=== PATIENT | male | born 1950 | race Caucasian/White ===

== ENCOUNTER 2016-09-05 05:45 | Day surgery (SDC) | payer OTHER ==
[2016-09-05] MEDS ORDERED: SODIUM CHLORIDE 0.9% 1,000 ML IV SCH (06:22)
[2016-09-05 06:34] VITALS: TEMP 97.9
[2016-09-05 06:47] LABS: Glucose,Whole Blood 215 mg/dL (75-99)
[2016-09-05] MEDS ORDERED: INSULIN LISPRO (humaLOG) 300 UNIT/3 ML VIAL SQ ONE (06:48)
[2016-09-05] MEDS ORDERED: PROPOFOL 10 MG/ML 20 ML VIAL IV ONE (07:26)
--- NOTE | 2016-09-05 07:50 | P.PCN ---
Preoperative Diagnosis: Procedure Electrical cardioversion for atrial fibrillation Indication for procedure Atrial fibrillation with a rapid ventricular response despite 100 mg twice daily of metoprolol, symptomatic shortness of breath on exertion Diabetes adult onset Dyslipidemia Increased BMI Details of procedure Successful electrical cardioversion with a single 360 J biphasic shock in the AP configuration Patient converted to sinus rhythm rate follow-up ECG showed sinus mechanism normal heart rates in the 70s normal cardiac intervals Plan Continue metoprolol 100 mg twice daily Continue xarelto 20 mg daily Continue all other medications as before Follow-up in 2 weeks in the office Twelve-lead ECG that day Decision regarding antiarrhythmic drug therapy based upon results of 2-D echo and stress test
[2016-09-05 10:22] VITALS: BP 130/62; PULSE 74
[2016-09-05 10:24] VITALS: RESP 20
== END 2016-09-05 10:40 | disposition home or self-care (01) ==
LOC: CATHCVL 05:45
PROVIDERS: ATTEND Internal Medicine Clinical Cardiac Electrophysiology
DX: I48.1 Persistent atrial fibrillation (principal); E11.9 Type 2 diabetes mellitus without complications; E78.5 Hyperlipidemia, unspecified; G47.33 Obstructive sleep apnea (adult) (pediatric); Z68.41 Body mass index [BMI] 40.0-44.9, adult; Z79.01 Long term (current) use of anticoagulants; Z79.82 Long term (current) use of aspirin; Z79.899 Other long term (current) drug therapy; Z88.5 Allergy status to narcotic agent; Z87.891 Personal history of nicotine dependence
CPT/HCPCS: 93005; 92960; J2704; 99152; 99153

== ENCOUNTER 2016-10-20 08:30 | Day surgery (SDC) | payer OTHER ==
[2016-10-20 08:06] VITALS: TEMP 98.8
[~2016-10-20 08:30] MED LIST: LIDOCAINE 1% INJ 10MG/ML (20 ML MDV) ONE; PROPOFOL 10 MG/ML 20 ML VIAL IV ONE; SODIUM CHLORIDE 0.9% 1,000 ML IV ONE
--- NOTE | 2016-10-20 08:32 | P.PCN ---
Preoperative Diagnosis: Procedure Electrical cardioversion for atrial fibrillation, on flecainide 150 g twice daily and xarelto Indication for the procedure Atrial fibrillation with RVR, symptomatic with tiredness and fatigue Recurrence of atrial fibrillation after electrical cardioversion without antiarrhythmic drug therapy Procedure details Under conscious sedation, successful electrical cardioversion the 360 J biphasic shock Patient converted to sinus rhythm Plan Continue flecainide 150 mg twice daily Continue xarelto Twelve-lead ECG Follow-up in 2 weeks for twelve-lead ECG and Holter monitor and follow with Dr. Najera in 3-4 weeks
[2016-10-20 09:21] VITALS: RESP 18
[2016-10-20] MEDS ORDERED: FLECAINIDE 50 MG TAB PO STA (09:37)
[2016-10-20] MEDS ORDERED: GABAPENTIN 300 MG CAP PO STA (09:37)
[2016-10-20] MEDS ORDERED: METOPROLOL TARTRATE 50 MG TAB PO STA (09:38)
[2016-10-20] MEDS ORDERED: ASPIRIN 81 MG CHEW PO STA (09:38)
[2016-10-20 10:01] VITALS: PULSE 80
[2016-10-20 10:10] VITALS: BP 154/73
[2016-10-20] MEDS ORDERED: GABAPENTIN 300 MG CAP PO SCH (21:00)
[2016-10-20] MEDS ORDERED: METOPROLOL TARTRATE 50 MG TAB PO SCH (21:00)
[2016-10-20] MEDS ORDERED: FLECAINIDE 50 MG TAB PO SCH (21:00)
[2016-10-21] MEDS ORDERED: ASPIRIN 81 MG CHEW PO SCH (09:00)
[2016-10-24 08:30] LABS: Glucose,Whole Blood 151 mg/dL (75-99)
== END 2016-10-20 11:00 | disposition home or self-care (01) ==
LOC: CATHCVL 08:30
PROVIDERS: ATTEND Internal Medicine Clinical Cardiac Electrophysiology
DX: I48.1 Persistent atrial fibrillation (principal); G47.33 Obstructive sleep apnea (adult) (pediatric); E78.5 Hyperlipidemia, unspecified; E11.9 Type 2 diabetes mellitus without complications; R41.3 Other amnesia; G62.9 Polyneuropathy, unspecified; Z88.5 Allergy status to narcotic agent; Z79.01 Long term (current) use of anticoagulants; Z79.84 Long term (current) use of oral hypoglycemic drugs; Z79.82 Long term (current) use of aspirin; Z79.899 Other long term (current) drug therapy
CPT/HCPCS: 93005; 92960; J2001; J2704

== ENCOUNTER → 2016-11-24 | Outpatient (CLI) | payer OTHER ==
--- NOTE | 2016-11-24 23:13 | CONS ---
DATE OF CONSULTATION: 11/24/2016 This patient is a 66-year-old gentleman who has been evaluated in the sleep center for obstructive sleep apnea-hypopnea syndrome. HISTORY OF PRESENT ILLNESS/SLEEP-WAKE EVALUATION: Patient's usual sleep schedule is from around 10 until 8, but sometimes he goes to bed a little bit earlier or a little bit later. He has problems with falling asleep. He has loud snoring, episodes of stopped breathing during sleep, awakenings with choking, nocturia, dry mouth, gasping for air, sleeptalking and sweating. He wakes up from sleep up to 8 times with nocturia. In the morning he wakes up tired. He has difficulties paying attention, falling asleep during the day, worries about his sleep, has problems with memory, concentration, irritability, depression, anxiety, sexual dysfunction. [place] Sleepiness Scale is significantly increased to 16. Past medical history is positive for: 1. Diabetes mellitus. 2. Post-traumatic stress disorder. 3. Atrial fibrillation. 4. Hyperlipidemia. 5. Prostate carcinoma. PAST SURGICAL HISTORY: Prostatectomy. MEDICATIONS: 1. Aspirin. 2. Atorvastatin. 3. Calcium supplement. 4. Cholecalciferol. 5. Docusate. 6. Fish oil. 7. Flecainide. 8. Gabapentin. 9. Glipizide. 10. Hydroxyzine. 11. Metformin. 12. Metoprolol. 13. Multivitamins. 14. Rivaroxaban. 15. Saxagliptin. 16. Sildenafil. REVIEW OF SYSTEMS: Multiple awakenings from sleep, sleepiness during the day, swelling of the legs. No fevers. No double vision. No recent chest pain. No shortness of breath. No abdominal pain. No bleeding episodes. No blood in urine. No seizure episodes. SOCIAL HISTORY: Negative for smoking or using alcohol. FAMILY HISTORY: Positive for snoring, sleep apnea, diabetes, mental illness. PHYSICAL EXAMINATION: A pleasant 66-year-old gentleman without distress. VITAL SIGNS: BP 131/62, HR 50, RR 16. Height 5 feet 7 inches. Weight 273. BMI 42.7. Neck 21 inches in circumference. Temperature 98.0. Oxygen saturation at room air 92%. HEENT: PERRLA, EOMI. Evaluation of oropharynx showed tongue protrudes midline; extremely low position of soft palate. NECK: Supple. No JVD. Thyroid is not palpable. LUNGS: Clear to percussion and to auscultation. Good air exchange. No wheezing or rhonchi. HEART: S1, S2 sounds regular at the moment. ABDOMEN: Obese. EXTREMITIES: One plus bilateral ankle edema. MARKETING ACCOUNT MANAGER: Awake, alert, and oriented x3. Cranial nerves 2 to 7 intact. There is no fasciculation or atrophy noted. No focal deficits observed. IMPRESSION: 1. Snoring, witnessed episodes of stopped breathing during sleep, extremely low position of soft palate, multiple awakenings from sleep with choking and gasping for air, wide neck; obstructive sleep apnea-hypopnea syndrome. 2. Obesity; body mass index of 42.7. 3. Post-traumatic stress disorder. 4. Diabetes mellitus. 5. History of atrial fibrillation. 6. Hyperlipidemia. 7. History of prostate cancer, status post prostatectomy. PLAN: 1. Polysomnography for evaluation of patient's breathing during sleep. 2. CPAP/BiPAP titration if sleep study confirms obstructive sleep apnea-hypopnea syndrome. 3. Preferable position during sleep on the side. 4. No driving if patient feels any sleepiness. Patient is aware of civil and criminal liability for unsafe driving. 5. I will see patient for follow-up visit to explain results of the testing and following plan. Thank you very much for referring this patient for consultation. Sincerely, Giuseppe Bach MD, PhD, FAASM. Diplomat of [place] Board of Sleep Medicine, Sleep Medicine Board by [place] [employer] of Medical Specialities [place] Board of Internal Medicine Nursing Specialist of [place] [facility] [place]
== END ==
LOC: SLEEP 15:11
PROVIDERS: ATTEND Internal Medicine
DX: G47.33 Obstructive sleep apnea (adult) (pediatric) (principal); E66.9 Obesity, unspecified; E11.9 Type 2 diabetes mellitus without complications; E78.5 Hyperlipidemia, unspecified; Z68.41 Body mass index [BMI] 40.0-44.9, adult; Z79.82 Long term (current) use of aspirin; Z79.899 Other long term (current) drug therapy
CPT/HCPCS: 99211

== ENCOUNTER 2017-12-27 14:04 | Emergency (ER) | payer OTHER ==
[2017-12-27 14:33] LABS: Glucose,Whole Blood 89 mg/dL (75-99)
--- NOTE | 2017-12-27 14:33 | ED ---
General Adult HPI - General Chief complaint: Fall Stated complaint: Fall/on blood thinners Time Seen by Provider: 12/27/17 14:04 Source: patient, RN notes reviewed Mode of arrival: ambulatory Limitations: no limitations - History of Present Illness Initial comments: This is a 67-year-old male who [place] and [place] forward [place] a slope hitting his knees first and then falling forward onto concrete where he hit his forearm. Patient states he did not hit his head and did not hurt his neck patient states he was never dazed. Patient states he only pain he has is his left forearm he denies any wrist pain and hand pain or upper arm pain. Patient denies any shoulder pain. Patient denies chest pain difficulty breathing or shortness of breath. Patient denies any new back pain. Patient denies any hip pain patient denies any lower extremity pain. - Related Data Home Medications Medication Instructions Recorded Confirmed Aspirin [Adult Low Dose Aspirin EC] 81 mg PO DAILY 08/31/16 10/20/16 Atorvastatin [Lipitor] 40 mg PO HS 08/31/16 10/20/16 Calcium Citrate 500 mg PO DAILY 08/31/16 10/20/16 Vela Juice 1 dose PO DAILY 08/31/16 10/20/16 Cholecalciferol [Vitamin D3] 2,000 unit PO BID 08/31/16 10/20/16 Docusate [Colace] 100 mg PO DAILY 08/31/16 10/20/16 Flaxseed Oil [[place]-3 Flaxseed Oil] 1 tab PO BID 08/31/16 10/20/16 Gabapentin [Neurontin] 300 mg PO BID 08/31/16 10/20/16 Glucosamine Sulfate 1,500 mg PO DAILY 08/31/16 10/20/16 Magnesium l-Lactate [Magbid ER] 1 tab PO BID 08/31/16 10/20/16 Metoprolol Tartrate [Lopressor] 100 mg PO BID 08/31/16 10/20/16 Multivitamins, Thera [Multivitamin 1 tab PO DAILY 08/31/16 10/20/16 (formulary)] [place]-3 Fatty Acids/Fish Oil [Fish 1 cap PO BID 08/31/16 10/20/16 Oil 1,000 mg Softgel] Rivaroxaban [Xarelto] 20 mg PO HS 08/31/16 10/20/16 glipiZIDE [Glucotrol] 10 mg PO BID 08/31/16 10/20/16 metFORMIN HCL 1,000 mg PO BID 08/31/16 10/20/16 Flecainide [Tambocor] 150 mg PO BID 10/20/16 10/20/16 Allergies Allergy/AdvReac Type Severity Reaction Status Date / Time codeine AdvReac URINARY Verified 12/27/17 14:13 RETENTION Review of Systems ROS Statement: Those systems with pertinent positive or pertinent negative responses have been documented in the HPI. ROS Other: All systems not noted in ROS Statement are negative. Past Medical History Past Medical History: Cancer, Diabetes Mellitus, Hyperlipidemia Additional Past Medical History / Comment(s): PERIPHERAL NEUROPATHY LEGS. 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 History of Any Multi-Drug Resistant Organisms: None Reported Past Surgical History: Prostate Surgery Additional Past Surgical History / Comment(s): ORIF RIGHT LEG & LEFT ARM. Past Anesthesia/Blood Transfusion Reactions: Previous Problems w/ Anesthesia Additional Past Anesthesia/Blood Transfusion Reaction / Comment(s): STATES AFTER HIS PROSTATE SURGERY, HE DIDN'T WAKE UP FOR 2 WEEKS (HAD SURGERY AT [facility] , STATES HE NEVER GOT AN ANSWER FROM PHYSICIANS TO WHAT HAPPENED). Past Psychological History: No Psychological Hx Reported Smoking Status: Former smoker Past Alcohol Use History: None Reported Past Drug Use History: Marijuana - Past Family History Mother Family Medical History: No Reported History General Exam - General Exam Comments Initial Comments: GENERAL: Patient is well-developed and well-nourished. Patient is nontoxic and well- hydrated and is in mild distress. ENT: Neck is soft and supple. No significant lymphadenopathy is noted. Oropharynx is clear. Moist mucous membranes. Neck has full range of motion without eliciting any pain. EYES: The sclera were anicteric and conjunctiva were pink and moist. Extraocular movements were intact and pupils were equal round and reactive to light. Eyelids were unremarkable. PULMONARY: Unlabored respirations. Good breath sounds bilaterally. No audible rales rhonchi or wheezing was noted. CARDIOVASCULAR: There is a regular rate and rhythm without any murmurs gallops or rubs. ABDOMEN: Soft and nontender with normal bowel sounds. SKIN: Skin is clear with no lesions or rashes and otherwise unremarkable. NEUROLOGIC: Patient is alert and oriented x3. Cranial nerves II through XII are grossly intact. Motor and sensory are also intact. Normal speech, volume and content. Symmetrical smile. MUSCULOSKELETAL: Patient's left wrist is immobile secondary to a previous surgery. Patient has some tenderness mid medial aspect of the forearm. LYMPHATICS: No significant lymphadenopathy is noted PSYCHIATRIC: Normal psychiatric evaluation. Limitations: no limitations Course Vital Signs 12/27/17 14:09 Temperature 97.7 F Pulse Rate 65 Respiratory 18 Rate Blood Pressure 153/60 O2 Sat by Pulse 95 Oximetry Medical Decision Making - Medical Decision Making Patient is an EKG showed normal sinus rhythm at 66 bpm FL interval 284 QRS is 84 Q-T intervals 4:30 QTC is 450. EKG was initially done secondary to fact that it was thought that he might be a pretty to trauma. However he does not meet criteria. Patient's forearm x-ray shows some old injury and a possible projectional versus fracture at the proximal radial head however I went back in and reexamine this area on the patient he was not tender at all and that area so I do not believe there is a fracture there. - Lab Data Lab Results 12/27/17 Range/Units 14:30 POC Glucose (mg/dL) 89 (75-99) mg/dL POC Glu [employer]itarian ID Karely Benavides Disposition Clinical Impression: Fall, Forearm contusion Disposition: HOME SELF-CARE Instructions: Fall Prevention for Older Adults (ED), Contusion in Adults (ED) Is patient prescribed a controlled substance at d/c from ED?: No Referrals: None,Stated [REFERRING] - 1-2 days Time of Disposition: 15:31
--- NOTE | 2017-12-27 14:54 | XR ---
EXAMINATION TYPE: XR forearm LT DATE OF EXAM: 12/27/2017 COMPARISON: Hand 06/27/2013 HISTORY: 67-year-old male with pain after fall. Previous injury to wrist years ago. TECHNIQUE: 2 views FINDINGS: There is radiocarpal and intercarpal ankylosis with severe degenerative changes at the distal radioul khadar joint. Old healed fracture deformity of the distal third radial shaft. Suboptimal obliquity at th e elbow for assessment of joint effusion. Possible minimal cortical step-off along the lateral margin of the radial neck. Otherwise, no acute fracture or dislocation seen. IMPRESSION: 1. 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 Sev ere degenerative changes at the distal radioulnar joint. Additional old healed fracture deformity of the radial shaft. 2. Subtle step-off at the radial neck could be projectional. Correlate for point tenderness here as a subtle nondisplaced fracture is difficult to exclude.
[2017-12-27 16:05] VITALS: BP 155/70; PULSE 60; RESP 16; TEMP 97.8
== END 2017-12-27 16:20 | disposition home or self-care (01) ==
LOC: EC 14:04
DX: S50.12XA Contusion of left forearm, initial encounter (principal); R53.2 Functional quadriplegia; E78.5 Hyperlipidemia, unspecified; E11.42 Type 2 diabetes mellitus with diabetic polyneuropathy; Z87.891 Personal history of nicotine dependence; Z79.01 Long term (current) use of anticoagulants; Z79.82 Long term (current) use of aspirin; Z79.84 Long term (current) use of oral hypoglycemic drugs; Z79.899 Other long term (current) drug therapy; Z88.5 Allergy status to narcotic agent; Z98.890 Other specified postprocedural states; W17.81XA Fall down embankment (hill), initial encounter; Y93.89 Activity, other specified; Y92.832 Beach as the place of occurrence of the external cause
CPT/HCPCS: 36415; 99283

== ENCOUNTER 2020-12-19 07:41 | Inpatient (IN) | payer OTHER, MEDICARE ==
[2020-12-19] MEDS ORDERED: ASPIRIN 81 MG PO STA (07:55)
--- NOTE | 2020-12-19 07:58 | ED ---
General Adult HPI - General Chief complaint: Chest Pain Stated complaint: chest pain Time Seen by Provider: 12/19/20 07:44 Source: patient, EMS, RN notes reviewed Mode of arrival: wheelchair Limitations: no limitations - History of Present Illness Initial comments: Patient is a pleasant 70-year-old male presenting to the emergency Department with chest discomfort. Onset of symptoms was last night. Patient had tightness in his chest with associated palpitations. No radiation. Heart rate at home was up to 90. This morning patient did have an episode of nausea and vomiting and sweating. Patient has had some mild soreness of breath. Symptoms worsen with position changes and movement and exertion. Patient does have history of similar symptoms previously associated with atrophic ablation. Patient is on anticoagulation, xarelto. - Related Data Home Medications Medication Instructions Recorded Confirmed Aspirin [Adult Low Dose Aspirin EC] 81 mg PO DAILY 08/31/16 12/27/17 Atorvastatin [Lipitor] 40 mg PO HS 08/31/16 12/27/17 Calcium Citrate 500 mg PO DAILY 08/31/16 12/27/17 Cholecalciferol [Vitamin D3 (25 2,000 unit PO BID 08/31/16 12/27/17 Mcg = 1000 Iu)] Docusate [Colace] 100 mg PO DAILY 08/31/16 12/27/17 Flaxseed Oil [[place]-3 Flaxseed Oil] 1 tab PO BID 08/31/16 12/27/17 Gabapentin [Neurontin] 300 mg PO BID 08/31/16 12/27/17 Glucosamine Sulfate 1,500 mg PO DAILY 08/31/16 12/27/17 Magnesium l-Lactate [Magbid ER] 1 tab PO BID 08/31/16 12/27/17 Metoprolol Tartrate [Lopressor] 100 mg PO BID 08/31/16 12/27/17 Multivitamins, Thera [Multivitamin 1 tab PO DAILY 08/31/16 12/27/17 (formulary)] [place]-3 Fatty Acids/Fish Oil [Fish 1 cap PO BID 08/31/16 12/27/17 Oil 1,000 mg Softgel] Rivaroxaban [Xarelto] 20 mg PO HS 08/31/16 12/27/17 glipiZIDE [Glucotrol] 10 mg PO BID 08/31/16 12/27/17 metFORMIN HCL 1,000 mg PO BID 08/31/16 12/27/17 Flecainide [Tambocor] 150 mg PO BID 10/20/16 12/27/17 Saxagliptin HCl [Onglyza] 5 mg PO DAILY 12/27/17 12/27/17 Allergies Allergy/AdvReac Type Severity Reaction Status Date / Time codeine AdvReac URINARY Verified 12/27/17 15:38 RETENTION Review of Systems ROS Statement: Those systems with pertinent positive or pertinent negative responses have been documented in the HPI. ROS Other: All systems not noted in ROS Statement are negative. Constitutional: Denies: fever Eyes: Denies: eye pain ENT: Denies: ear pain Respiratory: Reports: as per HPI. Denies: cough Cardiovascular: Reports: chest pain, palpitations Endocrine: Denies: fatigue Gastrointestinal: Reports: nausea, vomiting. Denies: abdominal pain Genitourinary: Denies: dysuria Musculoskeletal: Denies: back pain Skin: Denies: rash Neurological: Denies: weakness Past Medical History Past Medical History: Cancer, Diabetes Mellitus, Hyperlipidemia Additional Past Medical History / Comment(s): PERIPHERAL NEUROPATHY LEGS. 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 History of Any Multi-Drug Resistant Organisms: None Reported Past Surgical History: Prostate Surgery Additional Past Surgical History / Comment(s): ORIF RIGHT LEG & LEFT ARM. Past Anesthesia/Blood Transfusion Reactions: Previous Problems w/ Anesthesia Additional Past Anesthesia/Blood Transfusion Reaction / Comment(s): STATES AFTER HIS PROSTATE SURGERY, HE DIDN'T WAKE UP FOR 2 WEEKS (HAD SURGERY AT [facility], STATES HE NEVER GOT AN ANSWER FROM PHYSICIANS TO WHAT HAPPENED). Past Psychological History: No Psychological Hx Reported Smoking Status: Former smoker Past Alcohol Use History: None Reported Past Drug Use History: Marijuana - Past Family History Mother Family Medical History: No Reported History General Exam Limitations: no limitations General appearance: alert, in no apparent distress Head exam: Present: normocephalic Eye exam: Present: normal appearance Neck exam: Present: normal inspection Respiratory exam: Present: normal lung sounds bilaterally. Absent: chest wall tenderness Cardiovascular Exam: Present: regular rate, normal rhythm Expanded Peripheral pulses: 2+: Radial (R), Radial (L), Dorsalis Pedis (R), Dorsalis Pedis (L) GI/Abdominal exam: Present: soft. Absent: tenderness Extremities exam: Present: normal inspection. Absent: pedal edema, calf tenderness Neurological exam: Present: alert Psychiatric exam: Present: normal affect, normal mood Skin exam: Present: normal color Course Vital Signs 12/19/20 12/19/20 07:45 07:50 Temperature 98.4 F Pulse Rate 97 Pulse Rate [ 98 Cmm Technician ] Respiratory 16 16 Rate Blood Pressure 133/57 O2 Sat by Pulse 100 Oximetry EKG Findings - EKG Comments: EKG Findings:: Normal sinus rhythm with a rate of 100. RI 168. QRS 76. QT 392. QTC 505. Normal axis. Normal QRS. No acute ST change. Medical Decision Making - Medical Decision Making Case was discussed in detail with Dr. Lozano, who will admit. Patient updated. Blood transfusion ordered. - Lab Data Result diagrams: 12/19/20 07:56 12/19/20 07:56 Lab Results 12/19/20 12/19/20 12/19/20 Range/Units 07:56 07:56 07:56 WBC 6.7 (3.8-10.6) k/uL RBC 1.82 L (4.30-5.90) m/uL Hgb 5.5 L* (13.0-17.5) gm/dL Hct 17.5 L* (39.0-53.0) % MCV 96.2 (80.0-100.0) fL MCH 30.2 (25.0-35.0) pg MCHC 31.4 (31.0-37.0) g/dL RDW 16.8 H (11.5-15.5) % Plt Count 244 (150-450) k/uL MPV 8.7 Neutrophils % 72 % Lymphocytes % 18 % Monocytes % 6 % Eosinophils % 1 % Basophils % 0 % Neutrophils # 4.8 (1.3-7.7) k/uL Lymphocytes # 1.2 (1.0-4.8) k/uL Monocytes # 0.4 (0-1.0) k/uL Eosinophils # 0.1 (0-0.7) k/uL Basophils # 0.0 (0-0.2) k/uL Hypochromasia Slight Poikilocytosis Slight Anisocytosis Slight Macrocytosis Slight PT 13.6 H (9.0-12.0) sec INR 1.3 H (<1.2) APTT 22.3 (22.0-30.0) sec Sodium 132 L (137-145) mmol/L Potassium 4.7 (3.5-5.1) mmol/L Chloride 104 (98-107) mmol/L Carbon Dioxide 21 L (22-30) mmol/L Anion Gap 7 mmol/L BUN 41 H (9-20) mg/dL Creatinine 0.97 (0.66-1.25) mg/dL Est GFR (CKD-EPI)AfAm >90 (>60 ml/min/1.73 sqM) Est GFR (CKD-EPI)NonAf 79 (>60 ml/min/1.73 sqM) Glucose 349 H (74-99) mg/dL Calcium 8.1 L (8.4-10.2) mg/dL Magnesium 1.9 (1.6-2.3) mg/dL Total Bilirubin 0.3 (0.2-1.3) mg/dL AST 39 (17-59) U/L ALT 50 H (4-49) U/L Alkaline Phosphatase 69 (38-126) U/L Total Protein 5.3 L (6.3-8.2) g/dL Albumin 3.1 L (3.5-5.0) g/dL Stool Occult Blood (Negative) 12/19/20 Range/Units 08:26 WBC (3.8-10.6) k/uL RBC (4.30-5.90) m/uL Hgb (13.0-17.5) gm/dL Hct (39.0-53.0) % MCV (80.0-100.0) fL MCH (25.0-35.0) pg MCHC (31.0-37.0) g/dL RDW (11.5-15.5) % Plt Count (150-450) k/uL MPV Neutrophils % % Lymphocytes % % Monocytes % % Eosinophils % % Basophils % % Neutrophils # (1.3-7.7) k/uL Lymphocytes # (1.0-4.8) k/uL Monocytes # (0-1.0) k/uL Eosinophils # (0-0.7) k/uL Basophils # (0-0.2) k/uL Hypochromasia Poikilocytosis Anisocytosis Macrocytosis PT (9.0-12.0) sec INR (<1.2) APTT (22.0-30.0) sec Sodium (137-145) mmol/L Potassium (3.5-5.1) mmol/L Chloride (98-107) mmol/L Carbon Dioxide (22-30) mmol/L Anion Gap mmol/L BUN (9-20) mg/dL Creatinine (0.66-1.25) mg/dL Est GFR (CKD-EPI)AfAm (>60 ml/min/1.73 sqM) Est GFR (CKD-EPI)NonAf (>60 ml/min/1.73 sqM) Glucose (74-99) mg/dL Calcium (8.4-10.2) mg/dL Magnesium (1.6-2.3) mg/dL Total Bilirubin (0.2-1.3) mg/dL AST (17-59) U/L ALT (4-49) U/L Alkaline Phosphatase (38-126) U/L Total Protein (6.3-8.2) g/dL Albumin (3.5-5.0) g/dL Stool Occult Blood Positive (Negative) Critical Care Time Critical Care Time: Yes Total Critical Care Time: 32 Disposition Clinical Impression: Chest pain, Anemia, GI hemorrhage Disposition: [facility] Condition: Serious Is patient prescribed a controlled substance at d/c from ED?: No Referrals: Lopez Garcia DO [Primary Care Provider] - 1-2 days Decision Time: 08:40
[2020-12-19 08:05] LABS: Anisocytosis Slight; Basophils % (A) 0 %; Eosinophils # (A) 0.1 k/uL (0-0.7); Eosinophils % (A) 1 %; Hypochromasia Slight; Lymphocytes # (A) 1.2 k/uL (1.0-4.8); Lymphocytes % (A) 18 %; MCH 30.2 pg (25.0-35.0); MCHC 31.4 g/dL (31.0-37.0); MCV 96.2 fL (80.0-100.0); Macrocytosis Slight; Mean Platelet Volume 8.7; Monocytes # (A) 0.4 k/uL (0-1.0); Monocytes % (A) 6 %; Neutrophils # (A) 4.8 k/uL (1.3-7.7); Neutrophils % (A) 72 %; Platelet Count 244 k/uL (150-450); Poikilocytosis Slight; RBC 1.82 m/uL (4.30-5.90); RDW 16.8 % (11.5-15.5); WBC 6.7 k/uL (3.8-10.6)
[2020-12-19 08:08] LABS: HCT 17.5 % (39.0-53.0)
[2020-12-19 08:12] LABS: HGB 5.5 gm/dL (13.0-17.5)
[2020-12-19 08:15] LABS: INR 1.3 (<1.2); Prothrombin Time 13.6 sec (9.0-12.0)
[2020-12-19 08:16] LABS: Partial Thromboplastin Time 22.3 sec (22.0-30.0)
[2020-12-19 08:22] LABS: ALT 50 U/L (4-49); AST 39 U/L (17-59); African American GFR (CKD) >90 (>60 ml/min/1.73 sqM); Albumin 3.1 g/dL (3.5-5.0); Alkaline Phosphatase 69 U/L (38-126); Anion Gap 7 mmol/L; Blood Urea Nitrogen 41 mg/dL (9-20); Calcium 8.1 mg/dL (8.4-10.2); Carbon Dioxide 21 mmol/L (22-30); Chloride 104 mmol/L (98-107); Glucose 349 mg/dL (74-99); Magnesium 1.9 mg/dL (1.6-2.3); Non-African American GFR(CKD) 79 (>60 ml/min/1.73 sqM); Potassium 4.7 mmol/L (3.5-5.1); Sodium 132 mmol/L (137-145); Total Bilirubin 0.3 mg/dL (0.2-1.3); Total Protein 5.3 g/dL (6.3-8.2)
[2020-12-19] MEDS ORDERED: PANTOPRAZOLE 40 MG/10 ML VIAL IVP STA (08:25)
[2020-12-19] MEDS ORDERED: NALOXONE 0.4 MG/ML 1 ML VIAL IV PRN (08:26)
--- NOTE | 2020-12-19 08:36 | XR ---
EXAMINATION TYPE: XR chest 2V DATE OF EXAM: 12/19/2020 COMPARISON: Chest x-ray 06/26/2013 HISTORY: Chest pain TECHNIQUE: Frontal and lateral views of the chest are obtained on 3 images. FINDINGS: There is no focal air space opacity, pleural effusion, or pneumothorax seen. The cardiac silhouette size is within normal limits. The osseous structures are intact, there is thoracic spond ylosis. IMPRESSION: No acute cardiopulmonary process.
[2020-12-19] MEDS: SODIUM CHLORIDE 0.9% 1,000 ML IV SCH (08:40)
[2020-12-19] MEDS: INSULIN ASPART (NovoLOG) 100 UNIT/ML VIAL SQ SCH ×3 (15:53→21:11)
[2020-12-19 16:52] LABS: Glucose,Whole Blood 322 mg/dL (75-99)
[2020-12-19 18:15] LABS: ALT 48 U/L (4-49); AST 38 U/L (17-59); African American GFR (CKD) >90 (>60 ml/min/1.73 sqM); Albumin 3.3 g/dL (3.5-5.0); Alkaline Phosphatase 67 U/L (38-126); Anion Gap 8 mmol/L; Blood Urea Nitrogen 33 mg/dL (9-20); Calcium 8.3 mg/dL (8.4-10.2); Carbon Dioxide 21 mmol/L (22-30); Chloride 104 mmol/L (98-107); Glucose 322 mg/dL (74-99); Non-African American GFR(CKD) 89 (>60 ml/min/1.73 sqM); Potassium 4.4 mmol/L (3.5-5.1); Sodium 133 mmol/L (137-145); Total Bilirubin 0.6 mg/dL (0.2-1.3); Total Protein 5.5 g/dL (6.3-8.2)
[2020-12-19 18:27] LABS: Anisocytosis Slight; Basophils % (A) 0 %; Eosinophils # (A) 0.1 k/uL (0-0.7); Eosinophils % (A) 1 %; HCT 21.7 % (39.0-53.0); Hypochromasia Slight; Lymphocytes # (A) 1.6 k/uL (1.0-4.8); Lymphocytes % (A) 21 %; MCH 31.9 pg (25.0-35.0); MCV 93.7 fL (80.0-100.0); Mean Platelet Volume 7.6; Monocytes # (A) 0.4 k/uL (0-1.0); Monocytes % (A) 5 %; Neutrophils # (A) 5.5 k/uL (1.3-7.7); Neutrophils % (A) 70 %; Platelet Count 233 k/uL (150-450); Poikilocytosis Slight; RBC 2.31 m/uL (4.30-5.90); RDW 16.4 % (11.5-15.5); WBC 7.8 k/uL (3.8-10.6)
[2020-12-19 18:33] LABS: HGB 7.4 gm/dL (13.0-17.5)
[2020-12-19] MEDS ORDERED: DICLOFENAC SODIUM GEL 100 GM TUBE TOPICAL PRN (18:43)
[2020-12-19] MEDS ORDERED: FUROSEMIDE 10 MG/ML 2 ML VIAL IV ONE (19:15)
[2020-12-19] MEDS ORDERED: TEMAZEPAM 15 MG CAP PO PRN (19:27)
[2020-12-19] MEDS ORDERED: ALPRAZolam 0.25 MG TAB PO PRN (19:27)
[2020-12-19 20:50] LABS: Glucose,Whole Blood 326 mg/dL (75-99)
[2020-12-19] MEDS ORDERED: NON FORMULARY DRUG (Omega-3 Fatty Acids/Fish Oil [Fish Oil 1,000 Mg Softgel] 1 EACH Capsul PO SCH (21:00)
[2020-12-19] MEDS: ARTIFICIAL TEARS-HYPROMELLOSE DROPS 15 ML BTL BOTH EYES SCH (21:05)
[2020-12-19] MEDS: PRAZOSIN 1 MG CAP PO SCH (21:06)
[2020-12-19] MEDS: CHOLECALCIFEROL 25 MCG (1000 IU) TABLET PO SCH (21:08)
[2020-12-19] MEDS: FLECAINIDE 50 MG TAB PO SCH (21:08)
[2020-12-19] MEDS: glipiZIDE 10 MG TAB PO SCH (21:09)
[2020-12-19] MEDS: GABAPENTIN 300 MG CAP PO SCH (21:09)
[2020-12-19] MEDS: ATORVASTATIN 80 MG TAB PO SCH (21:11)
[2020-12-19] MEDS: PANTOPRAZOLE 40 MG/10 ML VIAL IVP SCH (21:13)
[2020-12-19] MEDS: metFORMIN 500 MG TAB PO SCH (21:50)
--- NOTE | 2020-12-19 23:12 | HP ---
HISTORY AND PHYSICAL DATE OF SERVICE: 12/19/2020 CHIEF COMPLAINTS: Chest pain and weakness. HISTORY OF PRESENT ILLNESS: This 70-year-old gentleman with a past medical history of multiple medical problems including atrial fibrillation, history of diabetes mellitus, hyperlipidemia, history of peripheral neuropathy of the legs, being followed by Dr. Enriquez in the [facility] was admitted with chest pain. The patient apparently went fishing and was feeling extremely weak. Patient also complaining of melenic stools for the past couple weeks. Patient apparently eating so much blueberries, but after stopping the blueberries, the patient thought the stool color returned to brown, but then the patient had again black stools. The patient also had episodes of nausea, vomiting, sweating also. The patient came to [facility] and admitted to the hospital for further evaluation and treatment. At the time of admission, hemoglobin found to be 5.5. Stool OB is positive. The patient was given 2 units of transfusion. Hemoglobin is at 7.4. Cardiology evaluation in progress. There is no history of fever, rigors or chills. No headache, loss of consciousness or seizures. Of note, patient is also taking Motrin significant amounts because of the back pain recently along with Xarelto. Blood sugar is elevated. PAST MEDICAL HISTORY: History of atrial fibrillation, history of diabetes, hyperlipidemia, history of peripheral neuropathy. MEDICATIONS: Medications prior to admission: metformin, Glucotrol, Zoloft, Xarelto, fish oil, multivitamins, Cozaar, Advil, Neurontin. Flexeril. Doses are reviewed. ALLERGIES: CODEINE. FAMILY HISTORY: No history of heart disease or strokes in the family. SOCIAL HISTORY: Previous history of smoking. Occasional THC. REVIEW OF SYSTEMS: ENT: No diminished vision. No diminished hearing. CARDIOVASCULAR: As mentioned earlier. RESPIRATORY: As mentioned earlier. GI: As mentioned earlier. no dysuria. Nervous system: No numbness, weakness. ALLERGY/IMMUNOLOGY: No asthma or hayfever. MUSCULOSKELETAL as mentioned earlier. HEMATOLOGY/ONCOLOGY: As mentioned earlier. ENDOCRINE as mentioned earlier. CONSTITUTIONAL: As mentioned earlier. DERMATOLOGY negative. RHEUMATOLOGY: Negative. PSYCHIATRY as mentioned earlier. PHYSICAL EXAM: Patient is alert, oriented x3. Pulse is 94. Blood pressure 128/55, respiration 18, temperature 98.4, pulse ox 98% on room air. HEENT: Conjunctivae pale. Oral mucosa moist. NECK is no jugular venous distention. No carotid bruit. No thyroid enlargement. Cardiovascular system: S1, S2 muffled. No S3, no S4. RESPIRATORY: Breath sounds diminished in the bases. No rhonchi. No crackles. ABDOMEN: Soft, obese, nontender. No mass palpable. No ascites. LEGS: No edema. No swelling. Nervous system: Higher functions as mentioned earlier. Moves all four limbs. No focal deficits. LYMPHATICS: No lymph nodes palpable in the neck, axillae or groin. SKIN: No ulcer. No rash and no bleeding. JOINTS: No active deforming arthropathy. LAB STUDIES: WBC 6.7, hemoglobin of 5.5. INR 1.3. Sodium 132. ASSESSMENT: 1. Acute upper gastrointestinal bleeding with acute blood loss anemia. 2. Chest pain for evaluation possible unstable angina. 3. Hyponatremia. 4. Diabetes mellitus type 2 uncontrolled with hyperglycemia. 5. Back pain, degenerative joint disease. 6. History of atrial fibrillation. 7. Diabetes mellitus type 2. 8. Hyperlipidemia. 9. History of peripheral neuropathy. 10.History of nicotine dependence. 11.Obesity with body mass of 41.5. 12.NO CODE, NO CPR, NO VENT. RECOMMENDATIONS AND DISCUSSION: In this 70-year-old gentleman who presented with multiple complex medical issues, we will monitor the patient closely. Continue the current medications, management and symptomatic treatment. I would recommend one more unit of transfusion for symptomatic anemia. Otherwise, Gastroenterology consultation, possible endoscopes, hold off antiplatelet agents. Continue the rest of medication. Monitor blood sugars closely. Otherwise, we will also obtain a Cardiology and Gastroenterology consultation as well. Prognosis guarded because of multiple complex medical issues. Symptomatic treatment also will be provided. See orders for details. A copy of this dictation being forwarded to Dr. Enriquez who is the primary physician. MMODL / IJN: [id number] / MTDOfe
[2020-12-20 00:56] LABS: Appearance,Urine Clear (Clear); Bilirubin,Urine Negative (Negative); Blood,Urine Negative (Negative); Color,Urine Light Yellow; Glucose,Urine (UA) 4+ (Negative); Ketones,Urine Negative (Negative); Leukocyte Esterase,Urine Negative (Negative); Nitrite,Urine Negative (Negative); Protein,Urine Negative (Negative); Specific Gravity,Urine 1.018 (1.001-1.035); Urobilinogen,Urine <2.0 mg/dL (<2.0)
[2020-12-20 04:48] LABS: ALT 47 U/L (4-49); AST 34 U/L (17-59); African American GFR (CKD) >90 (>60 ml/min/1.73 sqM); Albumin 2.9 g/dL (3.5-5.0); Alkaline Phosphatase 64 U/L (38-126); Anion Gap 4 mmol/L; Blood Urea Nitrogen 26 mg/dL (9-20); Calcium 8.2 mg/dL (8.4-10.2); Carbon Dioxide 25 mmol/L (22-30); Chloride 107 mmol/L (98-107); Glucose 210 mg/dL (74-99); Non-African American GFR(CKD) 87 (>60 ml/min/1.73 sqM); Potassium 3.8 mmol/L (3.5-5.1); Sodium 136 mmol/L (137-145); Total Bilirubin 0.6 mg/dL (0.2-1.3); Total Protein 5.1 g/dL (6.3-8.2)
[2020-12-20] MEDS: INSULIN ASPART (NovoLOG) 100 UNIT/ML VIAL SQ SCH ×4 (06:31→21:11)
[2020-12-20 06:34] LABS: Glucose,Whole Blood 279 mg/dL (75-99)
[2020-12-20 08:55] LABS: Anisocytosis Slight; Basophils % (A) 0 %; Eosinophils # (A) 0.2 k/uL (0-0.7); Eosinophils % (A) 3 %; HCT 23.1 % (39.0-53.0); HGB 7.9 gm/dL (13.0-17.5); Hypochromasia Slight; Lymphocytes # (A) 1.3 k/uL (1.0-4.8); Lymphocytes % (A) 20 %; MCH 32.1 pg (25.0-35.0); MCHC 34.3 g/dL (31.0-37.0); MCV 93.6 fL (80.0-100.0); Mean Platelet Volume 7.5; Monocytes # (A) 0.4 k/uL (0-1.0); Monocytes % (A) 6 %; Neutrophils # (A) 4.3 k/uL (1.3-7.7); Neutrophils % (A) 68 %; Platelet Count 226 k/uL (150-450); Poikilocytosis Moderate; RBC 2.46 m/uL (4.30-5.90); RDW 16.6 % (11.5-15.5); WBC 6.3 k/uL (3.8-10.6)
[2020-12-20] MEDS ORDERED: NON FORMULARY DRUG (Aspirin [Adult Low Dose Aspirin Ec] 81 MG Tablet.Dr) PO SCH (09:00)
[2020-12-20] MEDS ORDERED: NON FORMULARY DRUG (Ergocalciferol (Vitamin D2) [Vitamin D2 (2000 Iu)] 50 MCG Tablet) PO SCH (09:00)
[2020-12-20] MEDS: SERTRALINE 100 MG TAB PO SCH (09:12)
[2020-12-20] MEDS: FLECAINIDE 50 MG TAB PO SCH ×2 (09:12→21:11)
[2020-12-20] MEDS: GABAPENTIN 300 MG CAP PO SCH ×3 (09:12→21:10)
[2020-12-20] MEDS: buPROPion SR 150 MG TABLET.ER PO SCH (09:12)
[2020-12-20] MEDS: metFORMIN 500 MG TAB PO SCH ×2 (09:13→21:11)
[2020-12-20] MEDS: glipiZIDE 10 MG TAB PO SCH ×2 (09:13→21:11)
[2020-12-20] MEDS: LOSARTAN 25 MG TAB PO SCH (09:13)
[2020-12-20] MEDS: DOCUSATE 100 MG CAP PO SCH (09:14)
[2020-12-20] MEDS: PANTOPRAZOLE 40 MG/10 ML VIAL IVP SCH ×2 (09:14→21:12)
[2020-12-20] MEDS: LINAGLIPTIN 5 MG TABLET PO SCH (09:14)
[2020-12-20] MEDS: MULTIVITAMINS, THERA 1 EACH TAB PO SCH (09:15)
[2020-12-20] MEDS: CHOLECALCIFEROL 25 MCG (1000 IU) TABLET PO SCH ×2 (09:16→21:11)
[2020-12-20] MEDS: ARTIFICIAL TEARS-HYPROMELLOSE DROPS 15 ML BTL BOTH EYES SCH ×2 (09:24→21:12)
[2020-12-20] MEDS: SODIUM CHLORIDE 0.9% 1,000 ML IV SCH (09:25)
[2020-12-20 09:52] LABS: African American GFR (CKD) >90 (>60 ml/min/1.73 sqM); Anion Gap 6 mmol/L; Blood Urea Nitrogen 21 mg/dL (9-20); Calcium 8.2 mg/dL (8.4-10.2); Carbon Dioxide 25 mmol/L (22-30); Chloride 102 mmol/L (98-107); Glucose 345 mg/dL (74-99); Non-African American GFR(CKD) 87 (>60 ml/min/1.73 sqM); Potassium 4.2 mmol/L (3.5-5.1); Sodium 133 mmol/L (137-145)
--- NOTE | 2020-12-20 11:27 | P.CONS ---
History of Present Illness - Reason for Consult Consult date: 12/20/20 Anemia Requesting physician: Colt Velasco - Chief Complaint Chest pain - History of Present Illness 70-year-old male with a medical history significant for atrial fibrillation on anticoagulation therapy, diabetes mellitus and hyperlipidemia who presented to the hospital due to chest pain and shortness of breath. The patient had been experiencing some shortness of breath with chest tightness on exertion. Troponins have been negative and the patient was found to be anemic on presentation with a hemoglobin of 5.5 with normocytic indices currently at 7.9 from 7.4 after transfusion. Stool testing was positive for occult blood. BUN was elevated at 41 on presentation. The patient denies any prior history of peptic ulcer disease or anemia. He believes his last colonoscopy was approximately 5 years ago and significant for polypectomy and has never had an upper endoscopy in the past. Bowel movements have been dark over the past few weeks. Initially the patient attributed this to food however continued initially after he changed his diet and avoided blueberries. Currently he is reporting the bowel movements are brown. He had been taking a large amount of N SAID medication stating he would take Motrin up to 10 times daily for back pain. Review of Systems REVIEW OF SYSTEMS: CONSTITUTIONAL: Denies any fevers, chills, weight change but he does report some fatigue. CARDIOVASCULAR: Denies any palpitations high or low blood pressures, but he does have a known history of atrial fibrillation and had some chest pain on presentation which is improved. RESPIRATORY: Denies any hemoptysis or cough, but does report shortness of breath. GENITOURINARY: No dysuria or hematuria. MUSCULOSKELETAL: No weakness reported. SKIN: Denies any new rashes or lesions, jaundice or pallor. PSYCHIATRIC: Denies any depression or anxiety. NEUROLOGY: Denies headache, denies any new focal deficits. EARS/NOSE/THROAT: No recent hearing change, congestion, nasal discharge or sore throat. EYES: No pain in eyes, discharge or change in vision. GASTROINTESTINAL: As per HPI. Past Medical History Past Medical History: Atrial Fibrillation, Cancer, Diabetes Mellitus, Hyperlipi demia Additional Past Medical History / Comment(s): PERIPHERAL NEUROPATHY LEGS. 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 History of Any Multi-Drug Resistant Organisms: None Reported Past Surgical History: Prostate Surgery Additional Past Surgical History / Comment(s): ORIF RIGHT LEG & LEFT ARM. Past Anesthesia/Blood Transfusion Reactions: Previous Problems w/ Anesthesia Additional Past Anesthesia/Blood Transfusion Reaction / Comm: STATES AFTER HIS PROSTATE SURGERY, HE DIDN'T WAKE UP FOR 2 WEEKS (HAD SURGERY AT [facility], STATES HE NEVER GOT AN ANSWER FROM PHYSICIANS TO WHAT HAPPENED). Past Psychological History: No Psychological Hx Reported Smoking Status: Former smoker Past Alcohol Use History: None Reported Additional Past Alcohol Use History / Comment(s): QUIT SMOKING (2009), 40 YRS, 1.5 PPD. Past Drug Use History: Marijuana Additional Drug Use History / Comment(s): IN THE PAST. - Past Family History Mother Family Medical History: No Reported History Medications and Allergies Home Medications Medication Instructions Recorded Confirmed Type Aspirin [Adult Low Dose Aspirin EC] 81 mg PO DAILY 08/31/16 12/19/20 History Cholecalciferol [Vitamin D3 (25 1 tab PO BID 08/31/16 12/19/20 History Mcg = 1000 Iu)] Docusate [Colace] 100 mg PO DAILY 08/31/16 12/19/20 History Gabapentin [Neurontin] 600 mg PO TID 08/31/16 12/19/20 History Multivitamins, Thera [Multivitamin 1 tab PO DAILY 08/31/16 12/19/20 History (formulary)] [place]-3 Fatty Acids/Fish Oil [Fish 1 cap PO BID 08/31/16 12/19/20 History Oil 1,000 mg Softgel] Rivaroxaban [Xarelto] 20 mg PO HS 08/31/16 12/19/20 History glipiZIDE [Glucotrol] 10 mg PO BID 08/31/16 12/19/20 History metFORMIN HCL 1,000 mg PO BID 08/31/16 12/19/20 History Alogliptin Benzoate [Alogliptin] 25 mg PO DAILY 12/19/20 12/19/20 History Atorvastatin [Lipitor] 80 mg PO HS 12/19/20 12/19/20 History Cyclobenzaprine [Flexeril] 10 mg PO Q8H PRN 12/19/20 12/19/20 History Diclofenac Sodium Gel [Voltaren 4 gm TOPICAL Q6H PRN 12/19/20 12/19/20 History Gel] Ergocalciferol (Vitamin D2) 100 mcg PO DAILY 12/19/20 12/19/20 History [Vitamin D2 (2000 Iu)] Flecainide Acetate 100 mg PO BID 12/19/20 12/19/20 History Ibuprofen [Advil] 400 mg PO Q8HR PRN 12/19/20 12/19/20 History Losartan Potassium [Cozaar] 25 mg PO DAILY 12/19/20 12/19/20 History Naproxen 500 mg PO BID PRN 12/19/20 12/19/20 History Prazosin HCl 2 mg PO HS 12/19/20 12/19/20 History Propylene Glycol/Peg 400 [Systane 1 drop BOTH EYES BID 12/19/20 12/19/20 History Ultra 0.4-0.3% Eye Drp] Sertraline [Zoloft] 100 mg PO DAILY 12/19/20 12/19/20 History buPROPion HCL [Wellbutrin SR] 150 mg PO DAILY 12/19/20 12/19/20 History Allergies Allergy/AdvReac Type Severity Reaction Status Date / Time codeine AdvReac URINARY Verified 12/19/20 09:58 RETENTION Physical Exam Vitals: Vital Signs Temp Pulse Pulse Resp BP BP Pulse Ox 12/20/20 08:18 98 12/20/20 04:00 98.6 F 105 H 17 138/64 98 12/20/20 01:09 98.4 F 99 18 142/63 98 12/20/20 00:00 98.4 F 109 H 16 131/61 98 12/19/20 22:27 97.9 F 101 H 18 130/61 98 12/19/20 21:57 98.4 F 90 18 142/78 97 12/19/20 21:47 98.7 F 97 16 163/69 96 12/19/20 19:47 98.1 F 105 H 16 153/69 99 12/19/20 16:25 98.4 F 94 18 128/55 98 12/19/20 15:54 98.2 F 92 18 134/58 12/19/20 13:49 98.2 F 96 18 146/61 100 12/19/20 13:19 98.6 F 96 18 143/52 100 12/19/20 12:53 98 F 96 18 139/45 12/19/20 10:45 98.1 F 89 16 125/48 12/19/20 10:35 98 F 96 16 112/53 12/19/20 09:00 96 104/42 96 Intake and Output 12/19/20 12/20/20 12/20/20 22:59 06:59 14:59 Intake Total 410 620 Balance 410 620 Intake: Oral 100 Blood Product 310 620 Rc As-1 Unit 0 310 [id number] Rc Pheresis As-3 Unit 310 [id number] Other: Voiding Method Toilet Toilet # Voids 1 2 # Bowel Movements 2 Weight 120.202 kg 115.3 kg On physical examination, patient appears comfortable in no apparent distress. HEAD: Normocephalic, atraumatic. EYES: No scleral icterus. No conjunctival injection. MOUTH: No lesions, tongue midline. NECK: Trachea midline, no gross abnormalities. CHEST: Clear to auscultation with no wheezing or rhonchi appreciated. HEART: S1-S2 appreciated. ABDOMEN: Soft, obese, nontender to palpation. Bowel sounds are positive. No organomegaly. No guarding or rigidity. EXTREMITIES: No pedal edema. SKIN: No rashes, no jaundice. NEUROLOGIC: Alert and oriented x3. No focal deficits. Results CBC & Chem 7: 12/20/20 08:16 12/20/20 08:16 Labs: Abnormal Lab Results - Last 24 Hours (Table) 12/19/20 12/19/20 12/19/20 Range/Units 07:56 16:50 17:32 RBC 2.31 L (4.30-5.90) m/uL Hgb 7.4 L D (13.0-17.5) gm/dL Hct 21.7 L (39.0-53.0) % RDW 16.4 H (11.5-15.5) % Sodium (137-145) mmol/L Carbon Dioxide (22-30) mmol/L BUN (9-20) mg/dL Glucose (74-99) mg/dL POC Glucose (mg/dL) 322 H (75-99) mg/dL Calcium (8.4-10.2) mg/dL Total Protein (6.3-8.2) g/dL Albumin (3.5-5.0) g/dL Urine Glucose (UA) (Negative) Crossmatch See Detail 12/19/20 12/19/20 12/19/20 Range/Units 17:42 20:11 23:59 RBC (4.30-5.90) m/uL Hgb (13.0-17.5) gm/dL Hct (39.0-53.0) % RDW (11.5-15.5) % Sodium 133 L (137-145) mmol/L Carbon Dioxide 21 L (22-30) mmol/L BUN 33 H (9-20) mg/dL Glucose 322 H (74-99) mg/dL POC Glucose (mg/dL) 326 H (75-99) mg/dL Calcium 8.3 L (8.4-10.2) mg/dL Total Protein 5.5 L (6.3-8.2) g/dL Albumin 3.3 L (3.5-5.0) g/dL Urine Glucose (UA) 4+ H (Negative) Crossmatch 12/20/20 12/20/20 12/20/20 Range/Units 00:22 06:27 08:16 RBC 2.46 L (4.30-5.90) m/uL Hgb 7.9 L (13.0-17.5) gm/dL Hct 23.1 L (39.0-53.0) % RDW 16.6 H (11.5-15.5) % Sodium 136 L (137-145) mmol/L Carbon Dioxide (22-30) mmol/L BUN 26 H (9-20) mg/dL Glucose 210 H (74-99) mg/dL POC Glucose (mg/dL) 279 H (75-99) mg/dL Calcium 8.2 L (8.4-10.2) mg/dL Total Protein 5.1 L (6.3-8.2) g/dL Albumin 2.9 L (3.5-5.0) g/dL Urine Glucose (UA) (Negative) Crossmatch Chest x-ray: report reviewed (No acute cardiopulmonary process on chest x-ray) Assessment and Plan (1) Melena Narrative/Plan: 70-year-old male presenting with complaints of chest pain. Multiple medical comorbidities but denies any prior history of peptic ulcer disease or GI bleed. He denies any gross GI bleeding but had been noticing some darker colored bowel movements over the past few weeks. He had been taking excessive amounts of NSAID medications with Motrin up to 10 times daily for back pain. No prior EGD and colonoscopy was performed 5 years ago with polypectomy per his report. He denies any abdominal pain. He was found to have a macrocytic anemia with stool testing positive for occult blood and elevation in BUN of 41. Unclear etiology, plan is for EGD to rule out upper GI bleed from peptic ulcer disease, gastritis, esophagitis, AVM or other etiology with anemia laboratory evaluation also ordered. Current Visit: Yes Status: Acute Code(s): K92.1 - MELENA SNOMED Code(s): 3776745 (2) Normocytic anemia Current Visit: Yes Status: Acute Code(s): D64.9 - ANEMIA, UNSPECIFIED SNOMED Code(s): 649145459 (3) Positive occult stool blood test Current Visit: Yes Status: Acute Code(s): R19.5 - OTHER FECAL ABNORMALITIES SNOMED Code(s): 97291817 Plan: Supportive care Clear liquid diet Nothing by mouth after midnight Continue to monitor hemoglobin and hematocrit and transfuse as needed Avoid NSAID use Hold anticoagulation therapy for now Plan for EGD tomorrow with all of the risks, benefits and possible, patient of the procedure to into the patient length with HIS questions answered to his satisfaction Anemia laboratory evaluation ordered/added on to admission labs Continue Protonix IV twice daily Further recommendations pending findings from EGD Thank you for allowing us to participate in the care of the patient
[2020-12-20 11:59] LABS: Glucose,Whole Blood 299 mg/dL (75-99)
[2020-12-20 12:12] LABS: Reticulocyte % 12.9 % (0.5-2.0)
[2020-12-20 14:24] LABS: Anisocytosis Slight; HCT 24.5 % (39.0-53.0); HGB 7.9 gm/dL (13.0-17.5); Hypochromasia Slight; MCH 30.4 pg (25.0-35.0); MCHC 32.3 g/dL (31.0-37.0); MCV 94.1 fL (80.0-100.0); Mean Platelet Volume 8.8; Platelet Count 236 k/uL (150-450); Poikilocytosis Slight; RDW 16.9 % (11.5-15.5); WBC 6.9 k/uL (3.8-10.6)
--- NOTE | 2020-12-20 16:03 | PN ---
PROGRESS NOTE DATE OF SERVICE: 12/20/2020 INTERVAL HISTORY: This 70-year-old gentleman was admitted with acute upper gastrointestinal bleeding with acute blood loss anemia. He is being closely monitored. Hemoglobin 7.9 today. The patient has received 3 units transfusion. Hemoglobin was 5.5 on admission. The patient is being closely monitored. Dr. Zambrano is following the patient and planning clear liquids and avoid NSAIDs and possibly EGD tomorrow. PAST MEDICAL HISTORY: Reviewed. REVIEW OF SYMPTOMS: CARDIOVASCULAR: No angina or palpitations. RESPIRATORY: As mentioned earlier. GI: As mentioned earlier. : No dysuria. NERVOUS SYSTEM: No numbness or weakness. CURRENT MEDICATIONS: Reviewed include Xanax, Lipitor, Wellbutrin, Flexeril, Voltaren gel, Tambocor, Neurontin, Glucotrol, NovoLog, Tradjenta. Doses reviewed. PHYSICAL EXAM: GENERAL: Patient is alert and oriented times three. VITAL SIGNS: Pulse 63, blood pressure 140/60, respirations 16, temperature 99.1, pulse ox 99% on room air. HEENT: Conjunctivae normal. Oral mucosa moist. Conjunctivae are pale. NECK: No jugular venous distention. No carotid bruits. No lymph node enlargement. RESPIRATORY: Breath sounds diminished at the bases. No rhonchi, no crackles. HEART: S1 and S2, muffled. ABDOMEN: Soft, no tenderness. EXTREMITIES: No edema, no swelling. NERVOUS: No focal deficits. LABS: WBC 6.9, hemoglobin 7.9, glucose 299. ASSESSMENT: 1. Acute upper gastrointestinal bleeding with acute blood loss anemia status post blood transfusions x3. 2. Chest pain for evaluation, possible unstable angina. 3. Hyponatremia. 4. Diabetes mellitus type 2 uncontrolled with hyperglycemia. 5. Back pain, degenerative joint disease. 6. History atrial fibrillation. 7. Diabetes mellitus type 2. 8. Hyperlipidemia. 9. History of peripheral neuropathy. 10.History of nicotine dependence. 11.Obesity with body mass index of 41.1. 12.NO CODE, NO CPR, NO VENT. RECOMMENDATIONS AND DISCUSSION: This 70-year-old gentleman presented with multiple complex medical issues, we will monitor the patient closely. Continue the current management and continue symptomatic treatment. Repeat labs. Otherwise EGD by Dr. Zambrano. Avoid NSAIDs and antiplatelet agents for now. Guarded prognosis. Further recommendations to follow. MMODL / IJN: [id number] / [id number]
--- NOTE | 2020-12-20 16:04 | P.CRDCN ---
History of Present Illness History of present illness: HISTORY OF PRESENTING ILLNESS Patient is a pleasant 70-year-old male with a history of hypertension, diabetes mellitus type 2, hyperlipidemia, atrial fibrillation, arthritis who presents sec ondary to weakness, fatigue and chest pain. Patient admits he has been having melena over the last 2 weeks and he has been having a lot of left hip pain has been taking a good amount of Motrin. He has been on Xarelto for approximately 4 years and normally has not had any issues with GI bleeds. He was found to have hemoglobin of 5.5 and received packed red blood cell transfusion with hemoglobin up to 7.9. Patient feels much better since that time. He was previously having some chest pain however since transfusions is feeling much better. Blood work showed troponins negative 3, creatinine 0.97, sodium 132, BUN 41, glucose 349. Patient is scheduled to undergo EGD tomorrow. REVIEW OF SYSTEMS At the time of my exam: CONSTITUTIONAL: Denies fever or chills. +weakness CARDIOVASCULAR: D+chest pain, +shortness of breath, no orthopnea, PND or palpitations. RESPIRATORY: Denies cough. GASTROINTESTINAL: Denies abdominal pain, diarrhea, constipation, nausea or vomiting. MUSCULOSKELETAL: Denies myalgias. NEUROLOGIC: Denies numbness, tingling or weakness. ENDOCRINE: Denies fatigue, weight change, polydipsia or polyurina. GENITOURINARY: Denies burning, hematuria or urgency with micturation. HEMATOLOGIC: Denies history of anemia or bleeding. PHYSICAL EXAMINATION Vital signs reviewed. CONSTITUTIONAL: No apparent distress. Obese HEENT: Head is normocephalic. Pupils are equal, round. Sclerae anicteric. Mucous membranes of the mouth are moist. No JVD. No carotid bruit. CHEST EXAMINATION: Lungs are clear to auscultation. No chest wall tenderness is noted on palpation or with deep breathing. HEART EXAMINATION: Regular rate and rhythm. S1, S2 heard. No murmurs, gallops or rub. ABDOMEN: Soft, nontender. Positive bowel sounds. EXTREMITIES: 2+ peripheral pulses, no lower extremity edema and no calf tenderness. NEUROLOGIC EXAMINATION: Patient is awake, alert and oriented x3. ASSESSMENT 1. Acute GI bleed 2. Acute blood loss anemia 3. Paroxysmal atrial fibrillation, currently sinus rhythm on home flecainide 4. Mildly prolonged QTc 505 on EKG 5. Chest pain related to anemia, troponins normal do not suspect acute current syndrome 6. Preoperative cardiac clearance 7. Diabetes mellitus type 2 8. Essential hypertension 9. Hyperlipidemia PLAN Patient presented with GI bleed after ingesting a large amount of NSAIDs and on home anticoagulation with Xarelto. Hold Xarelto. Monitor QTC, QRS on flecainide. Continue with current cardiac regimen. Patient appears stable for EGD tomorrow and is cleared from a cardiology standpoint. May consider watchman closure of left atrial appendage in the future however GIB appears mainly related to NSIAD use. Past Medical History Past Medical History: Atrial Fibrillation, Cancer, Diabetes Mellitus, Hyperlipidemia Additional Past Medical History / Comment(s): PERIPHERAL NEUROPATHY LEGS. 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 History of Any Multi-Drug Resistant Organisms: None Reported Past Surgical History: Prostate Surgery Additional Past Surgical History / Comment(s): ORIF RIGHT LEG & LEFT ARM. Past Anesthesia/Blood Transfusion Reactions: Previous Problems w/ Anesthesia Additional Past Anesthesia/Blood Transfusion Reaction / Comment(s): STATES AFTER HIS PROSTATE SURGERY, HE DIDN'T WAKE UP FOR 2 WEEKS (HAD SURGERY AT [facility] , STATES HE NEVER GOT AN ANSWER FROM PHYSICIANS TO WHAT HAPPENED). Past Psychological History: No Psychological Hx Reported Smoking Status: Former smoker Past Alcohol Use History: None Reported Additional Past Alcohol Use History / Comment(s): QUIT SMOKING (2009), 40 YRS, 1.5 PPD. Past Drug Use History: Marijuana Additional Drug Use History / Comment(s): IN THE PAST. - Past Family History Mother Family Medical History: No Reported History Medications and Allergies Home Medications Medication Instructions Recorded Confirmed Type Aspirin [Adult Low Dose Aspirin EC] 81 mg PO DAILY 08/31/16 12/19/20 History Cholecalciferol [Vitamin D3 (25 1 tab PO BID 08/31/16 12/19/20 History Mcg = 1000 Iu)] Docusate [Colace] 100 mg PO DAILY 08/31/16 12/19/20 History Gabapentin [Neurontin] 600 mg PO TID 08/31/16 12/19/20 History Multivitamins, Thera [Multivitamin 1 tab PO DAILY 08/31/16 12/19/20 History (formulary)] [place]-3 Fatty Acids/Fish Oil [Fish 1 cap PO BID 08/31/16 12/19/20 History Oil 1,000 mg Softgel] Rivaroxaban [Xarelto] 20 mg PO HS 08/31/16 12/19/20 History glipiZIDE [Glucotrol] 10 mg PO BID 08/31/16 12/19/20 History metFORMIN HCL 1,000 mg PO BID 08/31/16 12/19/20 History Alogliptin Benzoate [Alogliptin] 25 mg PO DAILY 12/19/20 12/19/20 History Atorvastatin [Lipitor] 80 mg PO HS 12/19/20 12/19/20 History Cyclobenzaprine [Flexeril] 10 mg PO Q8H PRN 12/19/20 12/19/20 History Diclofenac Sodium Gel [Voltaren 4 gm TOPICAL Q6H PRN 12/19/20 12/19/20 History Gel] Ergocalciferol (Vitamin D2) 100 mcg PO DAILY 12/19/20 12/19/20 History [Vitamin D2 (2000 Iu)] Flecainide Acetate 100 mg PO BID 12/19/20 12/19/20 History Ibuprofen [Advil] 400 mg PO Q8HR PRN 12/19/20 12/19/20 History Losartan Potassium [Cozaar] 25 mg PO DAILY 12/19/20 12/19/20 History Naproxen 500 mg PO BID PRN 12/19/20 12/19/20 History Prazosin HCl 2 mg PO HS 12/19/20 12/19/20 History Propylene Glycol/Peg 400 [Systane 1 drop BOTH EYES BID 12/19/20 12/19/20 History Ultra 0.4-0.3% Eye Drp] Sertraline [Zoloft] 100 mg PO DAILY 12/19/20 12/19/20 History buPROPion HCL [Wellbutrin SR] 150 mg PO DAILY 12/19/20 12/19/20 History Allergies Allergy/AdvReac Type Severity Reaction Status Date / Time codeine AdvReac URINARY Verified 12/19/20 09:58 RETENTION Physical Exam Vitals: Vital Signs Temp Pulse Pulse Resp BP BP Pulse Ox 12/20/20 12:24 99.1 F 63 16 145/67 99 12/20/20 09:08 98.2 F 57 L 18 117/53 99 12/20/20 08:18 98 12/20/20 04:00 98.6 F 105 H 17 138/64 98 12/20/20 01:09 98.4 F 99 18 142/63 98 12/20/20 00:00 98.4 F 109 H 16 131/61 98 12/19/20 22:27 97.9 F 101 H 18 130/61 98 12/19/20 21:57 98.4 F 90 18 142/78 97 12/19/20 21:47 98.7 F 97 16 163/69 96 12/19/20 19:47 98.1 F 105 H 16 153/69 99 12/19/20 16:25 98.4 F 94 18 128/55 98 Intake and Output 12/20/20 12/20/20 12/20/20 06:59 14:59 22:59 Intake Total 620 150 Balance 620 150 Intake: Oral 150 Blood Product 620 Rc As-1 Unit 310 [id number] Other: Voiding Method Toilet Toilet # Voids 2 2 # Bowel Movements 1 Weight 115.3 kg Results 12/20/20 14:08 12/20/20 08:16 Cardiac Enzymes 12/19/20 12/19/20 12/20/20 Range/Units 17:32 17:42 00:22 AST 38 34 (17-59) U/L Troponin I <0.012 (0.000-0.034) ng/mL CBC 12/19/20 12/20/20 12/20/20 Range/Units 17:32 08:16 14:08 WBC 7.8 6.3 6.9 (3.8-10.6) k/uL RBC 2.31 L 2.46 L 2.60 L (4.30-5.90) m/uL Hgb 7.4 L D 7.9 L 7.9 L (13.0-17.5) gm/dL Hct 21.7 L 23.1 L 24.5 L (39.0-53.0) % Plt Count 233 226 236 (150-450) k/uL Comprehensive Metabolic Panel 12/19/20 12/20/20 12/20/20 Range/Units 17:42 00:22 08:16 Sodium 133 L 136 L 133 L (137-145) mmol/L Potassium 4.4 3.8 4.2 (3.5-5.1) mmol/L Chloride 104 107 102 (98-107) mmol/L Carbon Dioxide 21 L 25 25 (22-30) mmol/L BUN 33 H 26 H 21 H (9-20) mg/dL Creatinine 0.82 0.86 0.87 (0.66-1.25) mg/dL Glucose 322 H 210 H 345 H (74-99) mg/dL Calcium 8.3 L 8.2 L 8.2 L (8.4-10.2) mg/dL AST 38 34 (17-59) U/L ALT 48 47 (4-49) U/L Alkaline Phosphatase 67 64 (38-126) U/L Total Protein 5.5 L 5.1 L (6.3-8.2) g/dL Albumin 3.3 L 2.9 L (3.5-5.0) g/dL Current Medications Generic Name Dose Route Start Last Admin Trade Name Freq PRN Reason Stop Dose Admin Alprazolam 0.25 mg 12/19/20 19:27 Alprazolam 0.25 Mg Tab PO TID PRN Anxiety Artificial Tears 1 drops 12/19/20 21:00 12/20/20 09:24 Artificial Tears-Hypromellose Drops 15 Ml Btl BOTH EYES Not Given BID SYLVESTER Atorvastatin Calcium 80 mg 12/19/20 21:00 12/19/20 21:11 Atorvastatin 80 Mg Tab PO 80 mg HS SYLVESTER Administration Bupropion HCl 150 mg 12/20/20 09:00 12/20/20 09:12 Bupropion Sr 150 Mg Tablet.Er PO 150 mg DAILY SYLVESTER Administration Cholecalciferol 25 mcg 12/19/20 21:00 12/20/20 09:16 Cholecalciferol 25 Mcg (1000 Iu) Tablet PO Not Given BID SYLVESTER Cyclobenzaprine HCl 10 mg 12/19/20 18:43 Cyclobenzaprine 10 Mg Tab PO Q8H PRN Muscle Spasm Diclofenac Sodium 4 gm 12/19/20 18:43 Diclofenac Sodium Gel 100 Gm Tube TOPICAL Q6H PRN Pain Docusate Sodium 100 mg 12/20/20 09:00 12/20/20 09:14 Docusate 100 Mg Cap PO Not Given DAILY SYLVESTER Flecainide Acetate 100 mg 12/19/20 21:00 12/20/20 09:12 Flecainide 50 Mg Tab PO 100 mg BID SYLVESTER Administration Gabapentin 600 mg 12/19/20 22:00 12/20/20 09:12 Gabapentin 300 Mg Cap PO 600 mg TID SYLVESTER Administration Glipizide 10 mg 12/19/20 21:00 12/20/20 09:13 Glipizide 10 Mg Tab PO 10 mg BID SYLVESTER Administration Sodium Chloride 1,000 mls @ 20 mls/hr 12/19/20 08:30 12/20/20 09:25 Saline 0.9% IV Not Given .Q24H SYLVESTER Insulin Aspart 0 unit 12/19/20 12:30 12/20/20 12:25 Insulin Aspart (Novolog) 100 Unit/Ml Vial SQ 5 unit ACHS SYLVESTER Administration Protocol Linagliptin 5 mg 12/20/20 09:00 12/20/20 09:14 Linagliptin 5 Mg Tablet PO 5 mg DAILY SYLVESTER Administration Losartan Potassium 25 mg 12/20/20 09:00 12/20/20 09:13 Losartan 25 Mg Tab PO 25 mg DAILY SYLVESTER Administration Metformin HCl 1,000 mg 12/19/20 21:00 12/20/20 09:13 Metformin 500 Mg Tab PO 1,000 mg BID SYLVESTER Administration Multivitamins 1 each 12/20/20 09:00 12/20/20 09:15 Multivitamins, Thera 1 Each Tab PO Not Given DAILY SYLVESTER Naloxone HCl 0.2 mg 12/19/20 08:26 Naloxone 0.4 Mg/Ml 1 Ml Vial IV Q2M PRN Opioid Reversal Pantoprazole Sodium 40 mg 12/19/20 21:00 12/20/20 09:14 Pantoprazole 40 Mg/10 Ml Vial IVP 40 mg BID SYLVESTER Administration Prazosin HCl 2 mg 12/19/20 21:00 12/19/20 21:06 Prazosin 1 Mg Cap PO 2 mg HS SYLVESTER Administration Sertraline HCl 100 mg 12/20/20 09:00 12/20/20 09:12 Sertraline 100 Mg Tab PO 100 mg DAILY SYLVESTER Administration Temazepam 15 mg 12/19/20 19:27 Temazepam 15 Mg Cap PO HS PRN Insomnia Tramadol HCl 50 mg 12/19/20 19:28 Tramadol 50 Mg Tab PO QID PRN Breakthrough Pain Intake and Output 12/20/20 12/20/20 12/20/20 06:59 14:59 22:59 Intake Total 620 150 Balance 620 150 Intake: Oral 150 Blood Product 620 Rc As-1 Unit 310 [id number] Other: Voiding Method Toilet Toilet # Voids 2 2 # Bowel Movements 1 Weight 115.3 kg 12/20/20 14:08 12/20/20 08:16
[2020-12-20] MEDS: traMADol 50 MG TAB PO PRN ×2 (16:27→23:13)
[2020-12-20 16:53] LABS: Glucose,Whole Blood 248 mg/dL (75-99)
[2020-12-20 17:05] LABS: % Iron Saturation 29.65 (15.00-50.00)
[2020-12-20 17:13] LABS: Ferritin 51.1 ng/mL (22.0-322.0)
[2020-12-20 17:15] LABS: Folate, Serum 19.5 ng/mL
[2020-12-20 20:48] LABS: Glucose,Whole Blood 214 mg/dL (75-99)
[2020-12-20] MEDS: PRAZOSIN 1 MG CAP PO SCH (21:10)
[2020-12-20] MEDS: ATORVASTATIN 80 MG TAB PO SCH (21:11)
[2020-12-21] MEDS: traMADol 50 MG TAB PO PRN ×3 (05:46→23:09)
[2020-12-21 06:56] LABS: Glucose,Whole Blood 265 mg/dL (75-99)
[2020-12-21] MEDS: INSULIN ASPART (NovoLOG) 100 UNIT/ML VIAL SQ SCH ×4 (06:58→21:56)
[2020-12-21] MEDS: SODIUM CHLORIDE 0.9% 1,000 ML IV SCH (07:34)
[2020-12-21] MEDS: GABAPENTIN 300 MG CAP PO SCH ×3 (07:35→21:55)
[2020-12-21] MEDS: LOSARTAN 25 MG TAB PO SCH (07:35)
[2020-12-21] MEDS: SERTRALINE 100 MG TAB PO SCH (07:35)
[2020-12-21] MEDS: CHOLECALCIFEROL 25 MCG (1000 IU) TABLET PO SCH ×2 (07:35→21:56)
[2020-12-21] MEDS: MULTIVITAMINS, THERA 1 EACH TAB PO SCH (07:35)
[2020-12-21] MEDS: FLECAINIDE 50 MG TAB PO SCH ×2 (07:35→21:55)
[2020-12-21] MEDS: DOCUSATE 100 MG CAP PO SCH (07:36)
[2020-12-21] MEDS: PANTOPRAZOLE 40 MG/10 ML VIAL IVP SCH ×2 (07:36→21:56)
[2020-12-21] MEDS: buPROPion SR 150 MG TABLET.ER PO SCH (07:36)
[2020-12-21] MEDS: ARTIFICIAL TEARS-HYPROMELLOSE DROPS 15 ML BTL BOTH EYES SCH ×2 (07:37→21:54)
[2020-12-21 10:48] LABS: African American GFR (CKD) >90 (>60 ml/min/1.73 sqM); Anion Gap 3 mmol/L; Blood Urea Nitrogen 16 mg/dL (9-20); Calcium 8.2 mg/dL (8.4-10.2); Carbon Dioxide 28 mmol/L (22-30); Chloride 105 mmol/L (98-107); Glucose 244 mg/dL (74-99); Non-African American GFR(CKD) 88 (>60 ml/min/1.73 sqM); Potassium 4.3 mmol/L (3.5-5.1); Sodium 136 mmol/L (137-145)
[2020-12-21 11:17] LABS: Anisocytosis Slight; Basophils % (A) 0 %; Eosinophils # (A) 0.2 k/uL (0-0.7); Eosinophils % (A) 3 %; HCT 23.2 % (39.0-53.0); HGB 7.8 gm/dL (13.0-17.5); Hypochromasia Slight; Lymphocytes % (A) 22 %; MCH 31.5 pg (25.0-35.0); MCHC 33.6 g/dL (31.0-37.0); MCV 93.7 fL (80.0-100.0); Mean Platelet Volume 7.2; Monocytes # (A) 0.3 k/uL (0-1.0); Monocytes % (A) 6 %; Neutrophils % (A) 66 %; Platelet Count 229 k/uL (150-450); Poikilocytosis Slight; RBC 2.48 m/uL (4.30-5.90); RDW 16.1 % (11.5-15.5); WBC 4.6 k/uL (3.8-10.6)
[2020-12-21] MEDS: metFORMIN 500 MG TAB PO SCH ×2 (11:25→21:56)
[2020-12-21] MEDS: glipiZIDE 10 MG TAB PO SCH ×2 (11:25→21:56)
[2020-12-21 12:21] LABS: Glucose,Whole Blood 271 mg/dL (75-99)
[2020-12-21] MEDS ORDERED: PROPOFOL 10 MG/ML 50 ML VIAL IV ONE (13:53)
[2020-12-21] MEDS ORDERED: LIDOCAINE 1% INJ 10MG/ML (20 ML MDV) ONE (13:53)
[2020-12-21] MEDS ORDERED: SODIUM CHLORIDE 0.9% 500 ML 500 ML IV ONE (13:56)
--- NOTE | 2020-12-21 14:05 | P.PCN ---
Date of Procedure: 12/21/20 Procedure(s) Performed: BRIEF HISTORY: Patient is a 70-year-old, pleasant, white male admitted to hospital admitted hospital with black tarry stools and severe anemia with hemoglobin of 9 g/dL. He has history of A. fib on Xarelto currently on hold. UPPER ENDOSCOPY TO EVALUATE. PROCEDURE PERFORMED: Esophagogastroduodenoscopy. PREOPERATIVE DIAGNOSIS: Acute GI bleed. IV sedation per anesthesia. PROCEDURE: After informed consent was obtained, the patient was brought into the endoscopy unit. IV sedation was administered by Anesthesia under continuous monitoring. Initially the Olympus GIF-140 video endoscope was inserted into the mouth. Esophagus intubated without any difficulty. It was gradually advanced into the stomach and duodenum and carefully examined. Along the duodenal sweep there was a 1.5 and scattered erosions and biopsies were done from this area. The cm clean-based ulcer with no active bleeding. The scope at this time was withdrawn to the stomach, adequately insufflated with air, and upon careful examination, mucosa of the antrum, body, cardia and the fundus appeared normal. The scope was then withdrawn into the esophagus. The GE junction was located at 41 cm from the incisors. There was a short tongue of Amezquita's appearing mucosa extending proximal to the GE junction it was biopsied. The esophagus appeared normal. There were no erosions or ulcerations seen and the patient tolerated the procedure well. IMPRESSION: 1..1.5 cm clean based duodenal bulbar ulcer along the duodenal sweep with no active bleeding 2. Antral erosive gastritis 3. Short segment Amezquita's esophagus RECOMMENDATIONS: The findings of this examination were discussed with the patient. Diet will be advanced as tolerated. Hold the Xarelto for 2 more days. Continue Protonix 40 mg twice daily and avoid NSAIDs.
--- NOTE | 2020-12-21 14:31 | P.PN ---
Subjective Progress Note Date: 12/21/20 Patient is a pleasant 70-year-old male with a history of hypertension, diabetes mellitus type 2, hyperlipidemia, atrial fibrillation, arthritis who presents secondary to weakness, fatigue and chest pain. Patient admits he has been having melena over the last 2 weeks and he has been having a lot of left hip pain has been taking a good amount of Motrin. He has been on Xarelto for approximately 4 years and normally has not had any issues with GI bleeds. He was found to have hemoglobin of 5.5 and received packed red blood cell transfusion with hemoglobin up to 7.9. Patient feels much better since that time. He was previously having some chest pain however since transfusions is feeling much better. Blood work showed troponins negative 3, creatinine 0.97, sodium 132, BUN 41, glucose 349. Patient is scheduled to undergo EGD today. Patient has been stable without any chest pain or shortness of breath Objective - Vital Signs Vital signs: Vital Signs Temp 97.9 F 12/21/20 07:41 Pulse 86 12/21/20 07:41 Resp 22 12/21/20 07:41 BP 151/60 12/21/20 07:41 Pulse Ox 97 12/21/20 07:41 Intake & Output 12/20/20 12/21/20 12/21/20 18:59 06:59 18:59 Intake Total 510 420 Output Total 350 Balance 510 -350 420 Weight 117.9 kg Intake: IV 400 Oral 510 20 Output: Urine 350 Other: Voiding Method Toilet Toilet # Voids 2 1 # Bowel Movements 1 1 - Exam GENERAL EXAM: Patient is alert and oriented and doesn't appear to be in any acute distress HEENT: Normocephalic. Normal reaction of pupils, equal size, normal range of extraocular motion. No erythema or exudates in the throat. NECK: No masses, no nuchal rigidity. CHEST: No chest wall deformity. LUNGS: Equal air entry with no crackles or wheeze. HEART: S1 and S2 normal with no audible mumurs or gallops. Regular rhythm, femorals equal on both sides.. ABDOMEN: No hepatosplenomegaly, normal bowel sounds, no guarding or rigidity. SKIN: No rashes CENTRAL NERVOUS SYSTEM: No focal deficits. EXTREMITIES: No cyanosis, clubbing or edema. - Labs CBC & Chem 7: 12/21/20 09:20 12/21/20 09:20 Labs: Abnormal Lab Results - Last 24 Hours (Table) 12/20/20 12/20/20 12/21/20 Range/Units 16:52 19:59 06:38 RBC (4.30-5.90) m/uL Hgb (13.0-17.5) gm/dL Hct (39.0-53.0) % RDW (11.5-15.5) % Sodium (137-145) mmol/L Glucose (74-99) mg/dL POC Glucose (mg/dL) 248 H 214 H 265 H (75-99) mg/dL Calcium (8.4-10.2) mg/dL 12/21/20 12/21/20 12/21/20 Range/Units 09:20 09:20 12:03 RBC 2.48 L (4.30-5.90) m/uL Hgb 7.8 L (13.0-17.5) gm/dL Hct 23.2 L (39.0-53.0) % RDW 16.1 H (11.5-15.5) % Sodium 136 L (137-145) mmol/L Glucose 244 H (74-99) mg/dL POC Glucose (mg/dL) 271 H (75-99) mg/dL Calcium 8.2 L (8.4-10.2) mg/dL Assessment and Plan (1) Anemia Current Visit: Yes Status: Acute Code(s): D64.9 - ANEMIA, UNSPECIFIED SNOMED Code(s): 141315867 (2) GI hemorrhage Current Visit: Yes Status: Acute Code(s): K92.2 - GASTROINTESTINAL HEMORRHAGE, UNSPECIFIED SNOMED Code(s): 80221761 (3) Paroxysmal atrial fibrillation Current Visit: Yes Status: Acute Code(s): I48.0 - PAROXYSMAL ATRIAL FIBRILLATION SNOMED Code(s): 165477353 Plan: Patient is waiting to have upper GI evaluation. Anticoagulation is being held. Patient is otherwise clinically stable. Further recommendation depending upon the findings on the procedure
[2020-12-21] MEDS: LINAGLIPTIN 5 MG TABLET PO SCH (15:12)
[2020-12-21] MEDS: CYCLOBENZAPRINE 10 MG TAB PO PRN ×2 (15:17→23:09)
[2020-12-21 15:40] VITALS: RESP 18
[2020-12-21 17:16] LABS: Glucose,Whole Blood 294 mg/dL (75-99)
[2020-12-21] MEDS: SUCRALFATE 1 GM TAB PO SCH ×2 (17:39→21:55)
--- NOTE | 2020-12-21 18:17 | PN ---
PROGRESS NOTE DATE OF SERVICE: 12/21/2020 This 70-year-old gentleman who was admitted with acute upper GI bleeding and acute blood loss anemia had upper endoscopy by Dr. Matthews which showed a 1.6 cm clean-based duodenal ulcer along the duodenal sweep and antral erosive gastritis and a short segment of Amezquita's esophagus, also. No chest pain. No palpitations. No fever. The patient received already 3 units and hemoglobin currently is 7.8. Yesterday's hemoglobin was 7.9. Past medical history reviewed. REVIEW OF SYSTEMS: Noted. PHYSICAL EXAMINATION: Patient alert, oriented x3. Pulse is 88, blood pressure 123/56, respiration 18, temperature normal, pulse ox 98% on room air. HEENT: Conjunctivae pale. NECK: No jugular venous distention. NAUSEA CARDIOVASCULAR SYSTEM: S1, S2 muffled. RESPIRATORY SYSTEM: Breath sounds diminished at the bases. A few scattered rhonchi. No crackles. ABDOMEN: Soft, obese, non-tender. LEGS: No edema. No swelling. NERVOUS SYSTEM: No focal deficit. LABS: WBC 4.6, hemoglobin 7.8. Sodium is 136. ASSESSMENT: 1. Acute upper gastrointestinal bleeding with acute blood loss anemia, status post blood transfusion x3 secondary to a 1.5 cm clean-based duodenal ulcer. 2. Antral erosive gastritis and a short segment of Amezquita's esophagus on EGD. 3. Chest pain, possible unstable angina. 4. Hyponatremia. 5. Diabetes mellitus, type 2, uncontrolled with hyperglycemia. 6. Back pain and degenerative joint disease. 7. History of atrial fibrillation. 8. Diabetes mellitus, type 2. 9. Hyperlipidemia. 10.History of peripheral neuropathy. 11.History of nicotine dependence. 12.Obesity with body mass index of 41.1. 13.NO CODE, NO CPR, NO VENT. RECOMMENDATIONS AND DISCUSSION: I recommend to continue current medications, continue with the monitoring, symptomatic treatment. I recommend continuing with proton pump inhibitors. The patient is on Protonix 40 IV b.i.d. Add Carafate to the current regimen. Continue the rest of the medications. Closely follow with Gastroenterology. Repeat labs in the morning. Guarded prognosis. Further recommendations to follow. MMODL / IJN: [id number] /
[2020-12-21 20:58] LABS: Glucose,Whole Blood 285 mg/dL (75-99)
[2020-12-21] MEDS: PRAZOSIN 1 MG CAP PO SCH (21:55)
[2020-12-21] MEDS: ATORVASTATIN 80 MG TAB PO SCH (21:56)
[2020-12-22] MEDS: INSULIN ASPART (NovoLOG) 100 UNIT/ML VIAL SQ SCH (07:09)
[2020-12-22] MEDS: SUCRALFATE 1 GM TAB PO SCH (07:09)
[2020-12-22] MEDS: traMADol 50 MG TAB PO PRN (07:13)
[2020-12-22] MEDS: CYCLOBENZAPRINE 10 MG TAB PO PRN (07:13)
[2020-12-22 08:18] LABS: Glucose,Whole Blood 287 mg/dL (75-99)
[2020-12-22] MEDS: LINAGLIPTIN 5 MG TABLET PO SCH (09:52)
[2020-12-22] MEDS: PANTOPRAZOLE 40 MG/10 ML VIAL IVP SCH (09:52)
[2020-12-22 09:53] LABS: African American GFR (CKD) >90 (>60 ml/min/1.73 sqM); Anion Gap 6 mmol/L; Blood Urea Nitrogen 16 mg/dL (9-20); Calcium 8.3 mg/dL (8.4-10.2); Carbon Dioxide 26 mmol/L (22-30); Chloride 105 mmol/L (98-107); Glucose 263 mg/dL (74-99); Non-African American GFR(CKD) 86 (>60 ml/min/1.73 sqM); Potassium 4.2 mmol/L (3.5-5.1); Sodium 137 mmol/L (137-145)
[2020-12-22] MEDS: FLECAINIDE 50 MG TAB PO SCH (09:53)
[2020-12-22] MEDS: CHOLECALCIFEROL 25 MCG (1000 IU) TABLET PO SCH (09:53)
[2020-12-22] MEDS: buPROPion SR 150 MG TABLET.ER PO SCH (09:53)
[2020-12-22] MEDS: glipiZIDE 10 MG TAB PO SCH (09:53)
[2020-12-22] MEDS: metFORMIN 500 MG TAB PO SCH (09:53)
[2020-12-22] MEDS: MULTIVITAMINS, THERA 1 EACH TAB PO SCH (09:54)
[2020-12-22] MEDS: SERTRALINE 100 MG TAB PO SCH (09:54)
[2020-12-22] MEDS: GABAPENTIN 300 MG CAP PO SCH (09:54)
[2020-12-22] MEDS: DOCUSATE 100 MG CAP PO SCH (09:55)
[2020-12-22] MEDS: LOSARTAN 25 MG TAB PO SCH (09:55)
--- NOTE | 2020-12-22 10:40 | P.DS ---
Providers Date of admission: 12/19/20 08:26 Attending physician: Karla Enrique Consults: 12/19/20 08:27 Consult Physician Routine Consulting Provider: Shaun Ann Consult Reason/Comments: cp, a fib hx, anemia Do you want consulting provider notified?: Yes Consult Physician Urgent Consulting Provider: Kevyn Zambrano Consult Reason/Comments: GI hemorrhage Do you want consulting provider notified?: Yes Primary care physician: [facility] Course: 70-year-old male was admitted secondary to upper GI bleed and acute blood loss anemia from upper GI bleed. Patient had an upper GI endoscopy which showed any adrenal ulcer, antral area is a gastritis and a short segment of Amezquita's esophagus. Patient received total of 3 units of PRBC transfusion. Patient is clinically doing well will be discharged today patient present hemoglobin is little over 7. Patient is on anticoagulation with xarelto for atrial fibrillation, patient can resume Xarelto starting tomorrow evening as per gastroenterology. Patient is also on the aspirin which will be discontinued as there is no history of coronary artery disease. Patient does take naproxen which was discontinued and patient was given tramadol instead chronic back pain. Patient will be discharged on Protonix. Patient's blood sugars are bit high titration of his or hyperglycemic agents can be done as an outpatient. PHYSICAL EXAMINATION: GENERAL: The patient is alert and oriented x3, not in any acute distress. Obese. HEENT: Pupils are round and equally reacting to light. EOMI. No scleral icterus. No conjunctival pallor. Normocephalic, atraumatic. No pharyngeal erythema. No thyromegaly. CARDIOVASCULAR: S1 and S2 present. No murmurs, rubs, or gallops. PULMONARY: Chest is clear to auscultation, no wheezing or crackles. ABDOMEN: Soft, nontender, nondistended, normoactive bowel sounds. No palpable organomegaly. MUSCULOSKELETAL: No joint swelling or deformity. EXTREMITIES: No cyanosis, clubbing, or pedal edema. NEUROLOGICAL: Gross neurological examination did not reveal any focal deficits. SKIN: No rashes. Please refer to progress note from Dr. Velasco for the further details of hospitalization and other medical problems that were addressed here in chronic medical problems. Patient Condition at Discharge: Serious Plan - Discharge Summary Discharge Rx Participant: No New Discharge Prescriptions: New Pantoprazole Sodium [Protonix] 40 mg PO DAILY #30 tablet.dr Sucralfate [Carafate] 1 gm PO ACHS #0 tab traMADol HCl [Ultram] 50 mg PO QID PRN #10 tab PRN Reason: Breakthrough Pain Continue Propylene Glycol/Peg 400 [Systane Ultra 0.4-0.3% Eye Drp] 1 drop BOTH EYES BID Losartan Potassium [Cozaar] 25 mg PO DAILY Flecainide Acetate 100 mg PO BID Diclofenac Sodium Gel [Voltaren Gel] 4 gm TOPICAL Q6H PRN PRN Reason: Pain Ergocalciferol (Vitamin D2) [Vitamin D2 (2000 Iu)] 100 mcg PO DAILY buPROPion HCL [Wellbutrin SR] 150 mg PO DAILY Alogliptin Benzoate [Alogliptin] 25 mg PO DAILY Rivaroxaban [Xarelto] 20 mg PO HS #0 Sertraline [Zoloft] 100 mg PO DAILY Prazosin HCl 2 mg PO HS Cyclobenzaprine [Flexeril] 10 mg PO Q8H PRN PRN Reason: Muscle Spasm Atorvastatin [Lipitor] 80 mg PO HS Discontinued Aspirin [Adult Low Dose Aspirin EC] 81 mg PO DAILY Naproxen 500 mg PO BID PRN PRN Reason: Pain Ibuprofen [Advil] 400 mg PO Q8HR PRN PRN Reason: Pain No Action metFORMIN HCL 1,000 mg PO BID glipiZIDE [Glucotrol] 10 mg PO BID [place]-3 Fatty Acids/Fish Oil [Fish Oil 1,000 mg Softgel] 1 cap PO BID Multivitamins, Thera [Multivitamin (formulary)] 1 tab PO DAILY Gabapentin [Neurontin] 600 mg PO TID Docusate [Colace] 100 mg PO DAILY Cholecalciferol [Vitamin D3 (25 Mcg = 1000 Iu)] 1 tab PO BID Discharge Medication List Cholecalciferol [Vitamin D3 (25 Mcg = 1000 Iu)] 1 tab PO BID 08/31/16 [History] Docusate [Colace] 100 mg PO DAILY 08/31/16 [History] Gabapentin [Neurontin] 600 mg PO TID 08/31/16 [History] Multivitamins, Thera [Multivitamin (formulary)] 1 tab PO DAILY 08/31/16 [History] [place]-3 Fatty Acids/Fish Oil [Fish Oil 1,000 mg Softgel] 1 cap PO BID 08/31/16 [History] glipiZIDE [Glucotrol] 10 mg PO BID 08/31/16 [History] metFORMIN HCL 1,000 mg PO BID 08/31/16 [History] Alogliptin Benzoate [Alogliptin] 25 mg PO DAILY 12/19/20 [History] Atorvastatin [Lipitor] 80 mg PO HS 12/19/20 [History] Cyclobenzaprine [Flexeril] 10 mg PO Q8H PRN 12/19/20 [History] Diclofenac Sodium Gel [Voltaren Gel] 4 gm TOPICAL Q6H PRN 12/19/20 [History] Ergocalciferol (Vitamin D2) [Vitamin D2 (2000 Iu)] 100 mcg PO DAILY 12/19/20 [History] Flecainide Acetate 100 mg PO BID 12/19/20 [History] Losartan Potassium [Cozaar] 25 mg PO DAILY 12/19/20 [History] Prazosin HCl 2 mg PO HS 12/19/20 [History] Propylene Glycol/Peg 400 [Systane Ultra 0.4-0.3% Eye Drp] 1 drop BOTH EYES BID 12/19/20 [History] Sertraline [Zoloft] 100 mg PO DAILY 12/19/20 [History] buPROPion HCL [Wellbutrin SR] 150 mg PO DAILY 12/19/20 [History] Pantoprazole Sodium [Protonix] 40 mg PO DAILY #30 tablet.dr 12/22/20 [Rx] Rivaroxaban [Xarelto] 20 mg PO HS #0 12/22/20 [Rx] Sucralfate [Carafate] 1 gm PO ACHS #0 tab 12/22/20 [Rx] traMADol HCl [Ultram] 50 mg PO QID PRN #10 tab 12/22/20 [Rx] Follow up Appointment(s)/Referral(s): Rishi Butler MD [STAFF PHYSICIAN] - 2 Weeks Lopez Garcia DO [Primary Care Provider] - 3 Days
[2020-12-22 11:22] VITALS: BP 131/68; PULSE 100; TEMP 97.8
[2020-12-22] MEDS: ARTIFICIAL TEARS-HYPROMELLOSE DROPS 15 ML BTL BOTH EYES SCH (11:30)
[2020-12-22] MEDS: SODIUM CHLORIDE 0.9% 1,000 ML IV SCH (11:30)
[2020-12-22 11:40] LABS: Glucose,Whole Blood 297 mg/dL (75-99)
[2020-12-22 11:40] LABS: Anisocytosis Slight; Basophils % (A) 0 %; Eosinophils # (A) 0.2 k/uL (0-0.7); Eosinophils % (A) 4 %; HCT 24.6 % (39.0-53.0); HGB 7.9 gm/dL (13.0-17.5); Hypochromasia Slight; Lymphocytes # (A) 1.1 k/uL (1.0-4.8); Lymphocytes % (A) 23 %; MCH 30.8 pg (25.0-35.0); MCHC 31.9 g/dL (31.0-37.0); MCV 96.4 fL (80.0-100.0); Macrocytosis Slight; Mean Platelet Volume 8.4; Monocytes # (A) 0.3 k/uL (0-1.0); Monocytes % (A) 7 %; Neutrophils % (A) 63 %; Platelet Count 210 k/uL (150-450); Poikilocytosis Slight; RBC 2.55 m/uL (4.30-5.90); RDW 16.2 % (11.5-15.5); WBC 4.8 k/uL (3.8-10.6)
--- NOTE | 2020-12-22 11:52 | P.PN ---
Subjective Progress Note Date: 12/22/20 Principal diagnosis: GI bleed Is a pleasant 70-year-old white male patient who was admitted to the hospital with black tarry stools and severe anemia and the patient has a history of atrial fibrillation with signs are also has currently been on hold. Also has a history of NSAID use. The patient was seen and examined today lying in bed. He is status post upper endoscopy with findings of a 1 cm wide no bulbar ulcer without any active bleeding, antral erosive gastritis, and a short segment of Amezquita's esophagus. Today's hemoglobin is currently pending. He reports no bowel movement in 2 days. No bleeding from the rectum, black tarry stools, no nausea, no vomiting or coffee-ground emesis. He is tolerating a regular diet. Objective - Vital Signs Vital signs: Vital Signs Temp 98 F 12/22/20 04:00 Pulse 102 H 12/22/20 04:00 Resp 18 12/22/20 04:00 BP 125/56 12/22/20 04:00 Pulse Ox 99 12/22/20 04:00 Intake & Output 12/21/20 12/22/20 12/22/20 18:59 06:59 18:59 Intake Total 1909 370 Balance 191 370 Weight 118.1 kg Intake: IV 400 10 Invasive Line 1 10 Oral 1510 360 Other: Voiding Method Toilet Toilet # Voids 2 - Exam General appearance: The patient is alert, oriented, appears in no acute distress. HET: Head is normocephalic and atraumatic. Conjunctiva pink. Sclera anicteric. Neck: Supple without lymphadenopathy. Abdomen: Soft, nontender, nondistended with bowel sounds. No guarding or rigidity. Extremities: Normal skin color and turgor. No pedal edema Skin: No rashes, no jaundice Neurological: No focal deficits. Alert and oriented 3. - Labs CBC & Chem 7: 12/21/20 09:20 12/22/20 08:03 Labs: Abnormal Lab Results - Last 24 Hours (Table) 12/21/20 12/21/20 12/21/20 Range/Units 09:20 09:20 12:03 RBC 2.48 L (4.30-5.90) m/uL Hgb 7.8 L (13.0-17.5) gm/dL Hct 23.2 L (39.0-53.0) % RDW 16.1 H (11.5-15.5) % Sodium 136 L (137-145) mmol/L Glucose 244 H (74-99) mg/dL POC Glucose (mg/dL) 271 H (75-99) mg/dL Calcium 8.2 L (8.4-10.2) mg/dL 12/21/20 12/21/20 12/22/20 Range/Units 16:58 20:57 06:39 RBC (4.30-5.90) m/uL Hgb (13.0-17.5) gm/dL Hct (39.0-53.0) % RDW (11.5-15.5) % Sodium (137-145) mmol/L Glucose (74-99) mg/dL POC Glucose (mg/dL) 294 H 285 H 287 H (75-99) mg/dL Calcium (8.4-10.2) mg/dL Assessment and Plan (1) Melena Narrative/Plan: This is a 70-year-old male who presented with complaints of chest pain to the emergency department. Multiple medical comorbidities but denies any prior history of peptic ulcer disease or GI bleed. He did not have any gross GI bleeding but has had some darker colored bowel movements over the past few weeks. He had been taking excessive amounts of NSAIDs medication with Motrin up to 10 times daily for back pain. No prior EGD on the had a colonoscopy that was performed 5 years ago with polypectomy per his report. He denies any abdominal pain. His fund have macrocytic anemia with stool testing positive for occult blood. Unclear etiology, plan is for EGD to rule out upper GI bleed from peptic ulcer disease, gastritis, esophagitis, AVM or other etiology with anemia laboratory evaluation ordered. Current Visit: Yes Status: Acute Code(s): K92.1 - MELENA SNOMED Code(s): 1653132 (2) Normocytic anemia Current Visit: Yes Status: Acute Code(s): D64.9 - ANEMIA, UNSPECIFIED SNOMED Code(s): 636190780 (3) Positive occult stool blood test Current Visit: Yes Status: Acute Code(s): R19.5 - OTHER FECAL ABNORMALITIES SNOMED Code(s): 95254544 Plan: 1. Diabetes tolerated 2. Continue to follow labs closely 3. Avoid NSAID use 4. Continue Protonix 40 mg by mouth twice a day 5. Patient is status post EGD 6. Anemia lab work ordered and reviewed 7. Continue to hold Xarelto for another 24 hours Thank you for this consultation, patient may be discharged home from a GI standpoint once medically cleared Dr. Eliud Matthews I agree with the dictator's note, documented as a scribe by Corina Cabello.
--- NOTE | 2020-12-22 14:21 | P.PN ---
Subjective Patient is a pleasant 70-year-old male with a history of hypertension, diabetes mellitus type 2, hyperlipidemia, atrial fibrillation, arthritis who presents secondary to weakness, fatigue and chest pain. Patient admits he has been having melena over the last 2 weeks and he has been having a lot of left hip pain has been taking a good amount of Motrin. He has been on Xarelto for approximately 4 years and normally has not had any issues with GI bleeds. He was found to have hemoglobin of 5.5 and received packed red blood cell transfusion with hemoglobin up to 7.9. Patient feels much better since that time. He was previously having some chest pain however since transfusions is feeling much better. Blood work showed troponins negative 3, creatinine 0.97, sodium 132, BUN 41, glucose 349. Patient is scheduled to undergo EGD tomorrow. 12/22/20: Patient seen and examined at bedside, no acute distress. Plan for patient to be discharged home today blood pressure 131/68, heart rate 100, afebrile, maintaining oxygen saturations on room air left eye data reviewed hemoglobin 7.9, WBC 4.8, platelets 210, renal function stable. PHYSICAL EXAMINATION Vital signs reviewed. CONSTITUTIONAL: No apparent distress. Obese HEENT: Head is normocephalic. CHEST EXAMINATION: Lungs are clear to auscultation. HEART EXAMINATION: Regular rate and rhythm. S1, S2 heard. No murmurs, gallops or rub. ABDOMEN: Soft, nontender. Positive bowel sounds. EXTREMITIES: 2+ peripheral pulses, no lower extremity edema and no calf tenderness. NEUROLOGIC EXAMINATION: Patient is awake, alert and oriented x3. ASSESSMENT Acute GI bleed Acute blood loss anemia Paroxysmal atrial fibrillation, currently sinus rhythm on home flecainide Chest pain related to anemia, troponins normal do not suspect acute current syndrome Preoperative cardiac clearance Diabetes mellitus type 2 Essential hypertension Hyperlipidemia PLAN Patient being discharged, told to hold Xarelto for 2 days per GI Cleared for discharge from a cardiology standpoint. May consider watchman clos ure of left atrial appendage in the future however GIB appears mainly related to NSIAD use. Follow up with Dr. Butler Objective - Vital Signs Vital signs: Vital Signs Temp 97.8 F 12/22/20 08:00 Pulse 100 12/22/20 08:00 Resp 18 12/22/20 08:00 BP 131/68 12/22/20 08:00 Pulse Ox 96 12/22/20 08:00 Intake & Output 12/21/20 12/22/20 12/22/20 18:59 06:59 18:59 Intake Total 1909 370 480 Output Total 1 Balance 1909 370 479 Weight 118.1 kg Intake: IV 400 10 Invasive Line 1 10 Oral 1510 360 480 Output: Urine 1 Other: Voiding Method Toilet Toilet Toilet # Voids 2 - Labs CBC & Chem 7: 12/22/20 08:03 12/22/20 08:03 Labs: Abnormal Lab Results - Last 24 Hours (Table) 12/21/20 12/21/20 12/22/20 Range/Units 16:58 20:57 06:39 RBC (4.30-5.90) m/uL Hgb (13.0-17.5) gm/dL Hct (39.0-53.0) % RDW (11.5-15.5) % Glucose (74-99) mg/dL POC Glucose (mg/dL) 294 H 285 H 287 H (75-99) mg/dL Calcium (8.4-10.2) mg/dL 12/22/20 12/22/20 12/22/20 Range/Units 08:03 08:03 11:39 RBC 2.55 L (4.30-5.90) m/uL Hgb 7.9 L (13.0-17.5) gm/dL Hct 24.6 L (39.0-53.0) % RDW 16.2 H (11.5-15.5) % Glucose 263 H (74-99) mg/dL POC Glucose (mg/dL) 297 H (75-99) mg/dL Calcium 8.3 L (8.4-10.2) mg/dL
== END 2020-12-22 14:08 | disposition home or self-care (01) | DRG 378 ==
LOC: EC 07:41 → 3SCARD 08:26
PROVIDERS: ADMIT Internal Medicine; ATTEND Internal Medicine
PROC: 30233N1 Transfusion of Nonautologous Red Blood Cells into Peripheral Vein, Percutaneous Approach (ICD-10-PCS; 2020-12-19)
PROC: 0DB78ZX Excision of Stomach, Pylorus, Via Natural or Artificial Opening Endoscopic, Diagnostic (ICD-10-PCS; principal; 2020-12-21 07:30)
PROC: 0DB98ZX Excision of Duodenum, Via Natural or Artificial Opening Endoscopic, Diagnostic (ICD-10-PCS; principal; 2020-12-21 07:30)
PROC: 0DB58ZX Excision of Esophagus, Via Natural or Artificial Opening Endoscopic, Diagnostic (ICD-10-PCS; principal; 2020-12-21 07:30)
DX: K26.4 Chronic or unspecified duodenal ulcer with hemorrhage (principal); D62 Acute posthemorrhagic anemia; E87.1 Hypo-osmolality and hyponatremia; Z68.41 Body mass index [BMI] 40.0-44.9, adult; E11.42 Type 2 diabetes mellitus with diabetic polyneuropathy; E11.65 Type 2 diabetes mellitus with hyperglycemia; E66.9 Obesity, unspecified; E78.5 Hyperlipidemia, unspecified; G89.29 Other chronic pain; M54.9 Dorsalgia, unspecified; I10 Essential (primary) hypertension; I48.0 Paroxysmal atrial fibrillation; K22.70 Barrett's esophagus without dysplasia; K29.60 Other gastritis without bleeding; Z79.01 Long term (current) use of anticoagulants; Z79.82 Long term (current) use of aspirin; Z79.84 Long term (current) use of oral hypoglycemic drugs; Z79.899 Other long term (current) drug therapy; Z87.891 Personal history of nicotine dependence; Z20.822 Contact with and (suspected) exposure to COVID-19; R94.31 Abnormal electrocardiogram [ECG] [EKG]; Z57.4 Occupational exposure to toxic agents in agriculture; R41.3 Other amnesia; R07.9 Chest pain, unspecified; Z66 Do not resuscitate; Z85.9 Personal history of malignant neoplasm, unspecified
CPT/HCPCS: 36415; 43239; 71046; 80048; 80053; 81003; 82272; 82607; 82728; 82746; 83540; 83550; 83735; 84466; 84484; 85025; 85027; 85045; 85610; 85730; 86850; 86900; 86901; 86920; 87635; 88305; 88342; 93005; 94760; 96374; 99291

== ENCOUNTER 2023-10-06 10:41 | Emergency (ER) | payer OTHER, MEDICARE ==
--- NOTE | 2023-10-06 11:01 | ED ---
Wound/Laceration HPI - General Chief Complaint: Wound/Laceration Stated Complaint: right arm injury/laceration Time Seen by Provider: 10/06/23 10:59 Source: patient, RN notes reviewed Mode of arrival: ambulatory Limitations: no limitations - History of Present Illness Initial Comments: Patient is a 73-year-old male presenting to the ER with a chief complaint of a laceration. Patient states at midnight he accidentally fell and mounted moose antlers landing on his right forearm. He report the antler went into his forearm about 1 inch. Patient states he had difficulty getting bleeding under control as he takes Xarelto. Patient has full range of motion denies any paresthesias. Tetanus status unknown. He states it is painful. Denies any other injuries or complaints at this time. - Related Data Home Medications Medication Instructions Recorded Confirmed Cholecalciferol [Vitamin D3 (25 1 tab PO BID 08/31/16 12/19/20 Mcg = 1000 Iu)] Docusate [Colace] 100 mg PO DAILY 08/31/16 12/19/20 Gabapentin [Neurontin] 600 mg PO TID 08/31/16 12/19/20 Multivitamins, Thera [Multivitamin 1 tab PO DAILY 08/31/16 12/19/20 (formulary)] Noble-3 Fatty Acids/Fish Oil [Fish 1 cap PO BID 08/31/16 12/19/20 Oil 1,000 mg Softgel] glipiZIDE [Glucotrol] 10 mg PO BID 08/31/16 12/19/20 metFORMIN HCL [Glucophage] 1,000 mg PO BID 08/31/16 12/19/20 Alogliptin Benzoate [Alogliptin] 25 mg PO DAILY 12/19/20 12/19/20 Atorvastatin [Lipitor] 80 mg PO HS 12/19/20 12/19/20 Cyclobenzaprine [Flexeril] 10 mg PO Q8H PRN 12/19/20 12/19/20 Diclofenac Sodium Gel [Voltaren 1% 4 gm TOPICAL Q6H PRN 12/19/20 12/19/20 Gel] Ergocalciferol (Vitamin D2) 100 mcg PO DAILY 12/19/20 12/19/20 [Vitamin D2 (2000 Iu)] Flecainide Acetate [Tambocor] 100 mg PO BID 12/19/20 12/19/20 Losartan Potassium [Cozaar] 25 mg PO DAILY 12/19/20 12/19/20 Prazosin HCl 2 mg PO HS 12/19/20 12/19/20 Propylene Glycol/Peg 400 [Systane 1 drop BOTH EYES BID 12/19/20 12/19/20 Ultra 0.4-0.3% Eye Drp] Sertraline [Zoloft] 100 mg PO DAILY 12/19/20 12/19/20 buPROPion HCL [Wellbutrin SR] 150 mg PO DAILY 12/19/20 12/19/20 Previous Rx's Medication Instructions Recorded Cyclobenzaprine [Flexeril] 5 mg PO TID PRN #20 tablet 12/22/20 Pantoprazole Sodium [Protonix] 40 mg PO DAILY #30 tablet.dr 12/22/20 Rivaroxaban [Xarelto] 20 mg PO HS #0 12/22/20 traMADol HCl [Ultram] 50 mg PO QID PRN #10 tab 12/22/20 Allergies Allergy/AdvReac Type Severity Reaction Status Date / Time codeine AdvReac URINARY Verified 10/06/23 10:48 RETENTION Review of Systems ROS Statement: Those systems with pertinent positive or pertinent negative responses have been documented in the HPI. ROS Other: All systems not noted in ROS Statement are negative. Past Medical History Past Medical History: Atrial Fibrillation, Cancer, Diabetes Mellitus, Hyperlipidemia Additional Past Medical History / Comment(s): PERIPHERAL NEUROPATHY LEGS. 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 History of Any Multi-Drug Resistant Organisms: None Reported Past Surgical History: Prostate Surgery Additional Past Surgical History / Comment(s): ORIF RIGHT LEG & LEFT ARM. Past Anesthesia/Blood Transfusion Reactions: Previous Problems w/ Anesthesia Additional Past Anesthesia/Blood Transfusion Reaction / Comment(s): STATES AFTER HIS PROSTATE SURGERY, HE DIDN'T WAKE UP FOR 2 WEEKS (HAD SURGERY AT [facility], STATES HE NEVER GOT AN ANSWER FROM PHYSICIANS TO WHAT HAPPENED). Past Psychological History: No Psychological Hx Reported Smoking Status: Former smoker Past Alcohol Use History: None Reported Past Drug Use History: Marijuana - Past Family History Mother Family Medical History: No Reported History General Exam Limitations: no limitations General appearance: alert, in no apparent distress Head exam: Present: atraumatic, normocephalic, normal inspection Eye exam: Present: normal appearance, PERRL, EOMI. Absent: scleral icterus, conjunctival injection, periorbital swelling Respiratory exam: Present: normal lung sounds bilaterally. Absent: respiratory distress, wheezes, rales, rhonchi, stridor Cardiovascular Exam: Present: regular rate, normal rhythm, normal heart sounds. Absent: systolic murmur, diastolic murmur, rubs, gallop, clicks Extremities exam: Present: full ROM, normal capillary refill, other (7 cm laceration to right forearm. No active bleeding. Deep structures intact. 2+ right radial pulse. Sensation intact. Full active range of motion of right elbow, wrist and digits) Neurological exam: Present: alert, oriented X3, CN II-XII intact Psychiatric exam: Present: normal affect, normal mood Skin exam: Present: warm, dry, intact, normal color. Absent: rash Course Vital Signs 10/06/23 10:46 Temperature 98.1 F Pulse Rate 62 Respiratory 20 Rate Blood Pressure 146/80 O2 Sat by Pulse 99 Oximetry Procedures - Laceration Laceration #1 Consent Obtained: verbal consent Indication: laceration Site: upper extremity Size (cm): 7 Description: linear Depth: simple, single layer Anesthetic Used: lidocaine 1% Anesthesia Technique: local infiltration Amount (mls): 12 Pre-repair: wound explored, irrigated extensively, deep structures intact Type of Sutures: nylon Size of Sutures: 4-0 Number of Sutures: 7 Technique: simple, interrupted Patient Tolerated Procedure: well, no complications Medical Decision Making - Medical Decision Making Was pt. sent in by a medical professional or institution (, PA, BRICK CHIMNEY SUPERVISOR, urgent care, hospital, or prison...) When possible be specific @ -No Did you speak to anyone other than the patient for history (EMS, parent, family, police, friend...)? What history was obtained from this source @ -No Did you review nursing and triage notes (agree or disagree)? Why? @ -I reviewed and agree with nursing and triage notes Were old charts reviewed (outside hosp., previous admission, EMS record, old EKG, old radiological studies, urgent care reports/EKG's, prison records)? Report findings @ -No old charts were reviewed Differential Diagnosis (chest pain, altered mental status, abdominal pain women, abdominal pain men, vaginal bleeding, weakness, fever, dyspnea, syncope, headache, dizziness, GI bleed, back pain, seizure, CVA, palpatations, mental health, musculoskeletal)? @ -Laceration, abrasion, contusion, avulsion, foreign body this list is not meant to be all-inclusive EKG interpreted by me (3pts min.). @ -None X-rays interpreted by me (1pt min.). @ -X-ray right forearm interpreted by me shows no radiopaque foreign bodies, fractures or dislocations. CT interpreted by me (1pt min.). @ -None done U/S interpreted by me (1pt. min.). @ -None done What testing was considered but not performed or refused? (CT, X-rays, U/S, labs)? Why? @ -None What meds were considered but not given or refused? Why? @ -None Did you discuss the management of the patient with other professionals (professionals i.e. , PA, BRICK CHIMNEY SUPERVISOR, lab, RT, psych nurse, health and social care teacher, residential concierge, teacher, fire officer, telephonic case manager)? Give summary @ -No Was smoking cessation discussed for >3mins.? @ -No Was critical care preformed (if so, how long)? @ -No Were there social determinants of health that impacted care today? How? (Homelessness, low income, unemployed, alcoholism, drug addiction, transportation, low edu. Level, literacy, decrease access to med. care, [place] [facility], rehab)? @ -No Was there de-escalation of care discussed even if they declined (Discuss DNR or withdrawal of care, Hospice)? DNR status @ -No What co-morbidities impacted this encounter? (DM, HTN, Smoking, COPD, CAD, Cancer, CVA, ARF, Chemo, Hep., AIDS, mental health diagnosis, sleep apnea, morbid obesity)? @ -None Was patient admitted / discharged? Hospital course, mention meds given and route, prescriptions, significant lab abnormalities, going to OR and other pertinent info. @ -Discharge. Patient is a 73-year-old male presenting to the ER with chief complaint of laceration. History and physical exam were completed. Vitals stable. Patient had a 7 cm not actively bleeding laceration to right forearm. Neurovascularly intact. Patient had full active range of motion. X-rays obtained due to to concern of possible foreign body were negative. Tetanus updated. Laceration closed using 7 simple interrupted sutures. Patient tolerated procedure well. Suture care was discussed. Advised patient to have sutures removed in 7 to 10 days. Return parameters were discussed. Patient be discharged stable condition with follow-up to PCP. Patient expressed understanding and agreement with care plan. Undiagnosed new problem with uncertain prognosis? @ -No Drug Therapy requiring intensive monitoring for toxicity (Heparin, Nitro, Insulin, Cardizem)? @ -No Were any procedures done? @ -Yes Diagnosis/symptom? @ -Laceration Acute, or Chronic, or Acute on Chronic? @ -Acute Uncomplicated (without systemic symptoms) or Complicated (systemic symptoms)? @ -Uncomplicated Side effects of treatment? @ -No Exacerbation, Progression, or Severe Exacerbation? @ -No Poses a threat to life or bodily function? How? (Chest pain, [place], [place], pneumonia, PE, COPD, DKA, ARF, appy, cholecystitis, CVA, Diverticulitis, Homicidal, Suicidal, threat to staff... and all critical care pts) @ -No - Radiology Data Radiology results: report reviewed, image reviewed Disposition Clinical Impression: Laceration Disposition: HOME SELF-CARE Condition: Stable Instructions (If sedation given, give patient instructions): Care For Your Stitches (ED) Additional Instructions: Please have sutures removed in 7 to 10 days. Monitor for any signs of infection. Return to the ER for any new or worsening symptoms. Is patient prescribed a controlled substance at d/c from ED?: No Referrals: Nonstaff,Physician [Primary Care Provider] - 1-2 days Time of Disposition: 12:39
[2023-10-06 11:05] VITALS: PULSE 62
[2023-10-06] MEDS: LIDOCAINE 1% INJ 10MG/ML (20 ML MDV) SQ ONE (11:10)
[2023-10-06] MEDS: DIPH,PERTUS(ACELL)TETVAC-LF 0.5 ML VIAL IM ONE (11:10)
[2023-10-06] MEDS: ACETAMINOPHEN TAB 325 MG TAB PO STA (11:11)
--- NOTE | 2023-10-06 12:11 | XR ---
EXAMINATION TYPE: XR forearm RT DATE OF EXAM: 10/06/2023 CLINICAL HISTORY: pain TECHNIQUE: Frontal and lateral images of the right forearm are obtained. COMPARISON: None. FINDINGS: There is no acute fracture/dislocation evident. The joint spaces appear within normal limi ts. Soft tissue laceration without evidence for radiopaque foreign body. IMPRESSION: There is no acute fracture or dislocation. ICD 10 NO FRACTURE, INITIAL EVALUATION
[2023-10-06 13:07] VITALS: BP 139/81; RESP 18; TEMP 98
== END 2023-10-06 12:50 | disposition home or self-care (01) ==
LOC: EC 10:41
DX: S51.811A Laceration without foreign body of right forearm, initial encounter (principal); E11.9 Type 2 diabetes mellitus without complications; E78.5 Hyperlipidemia, unspecified; I48.91 Unspecified atrial fibrillation; F12.90 Cannabis use, unspecified, uncomplicated; Z87.891 Personal history of nicotine dependence; Z79.84 Long term (current) use of oral hypoglycemic drugs; Z79.899 Other long term (current) drug therapy; Z23 Encounter for immunization; Z88.5 Allergy status to narcotic agent; W18.30XA Fall on same level, unspecified, initial encounter
CPT/HCPCS: 73090; 90715; 12002; 90471; 99283; J2001

== ENCOUNTER 2024-11-06 07:37 | Day surgery (SDC) | payer MEDICARE, OTHER ==
[~2024-11-06 07:37] MED LIST changes: +LACTATED RINGERS 1,000 ML IV SCH; -LIDOCAINE 1% INJ 10MG/ML (20 ML MDV) ONE; -PROPOFOL 10 MG/ML 20 ML VIAL IV ONE; -SODIUM CHLORIDE 0.9% 1,000 ML IV ONE
[2024-11-06 08:20] LABS: Glucose,Whole Blood 145 mg/dL (70-110)
[2024-11-06 08:24] VITALS: TEMP 97.7
[2024-11-06] MEDS: IV FLUID CONTINUATION 1,000 ML IV ONE (08:25)
[2024-11-06] MEDS ORDERED: LIDOCAINE 1% INJ 10MG/ML (20 ML MDV) ONE (08:49)
[2024-11-06] MEDS ORDERED: PROPOFOL 10 MG/ML 20 ML VIAL IV ONE (08:49)
--- NOTE | 2024-11-06 09:08 | P.PCN ---
Date of Procedure: 11/06/24 Procedure(s) Performed: BRIEF HISTORY: Patient is a 74-year-old pleasant white male scheduled for an elective colonoscopy as a part of screening for colon cancer/positive Cologuard. PROCEDURE PERFORMED: Colonoscopy. PREOPERATIVE DIAGNOSIS: Screening for colon cancer/positive Cologuard. IV sedation per Anesthesia. PROCEDURE: After informed consent was obtained, the patient, was brought into the endoscopy unit. IV sedation was administered by Anesthesia under continuous monitoring. Digital rectal examination was normal. Initially the Olympus CF-160 flexible video colonoscope was then inserted in the rectum, gradually advanced into the cecum without any difficulty. Careful examination was performed as the scope was gradually being withdrawn. Ileocecal valve and the appendiceal orifice were visualized and appeared normal. Prep was excellent. Mucosa of the cecum, ascending colon, transverse colon, descending colon, sigmoid colon, and rectum appeared normal. Retroflexion was performed in the rectum and no lesions were seen. The patient tolerated the procedure well. IMPRESSION: Normal-appearing colon from rectum to cecum with no evidence of colorectal neoplasia. RECOMMENDATIONS: Findings of this examination were discussed with the patient as well as his family. He was advised to resume Xarelto tonight. Continue with a high-fiber diet..
[2024-11-06 09:35] VITALS: BP 156/64; PULSE 55; RESP 16
== END 2024-11-06 09:40 | disposition home or self-care (01) ==
LOC: ORWHC2ENDO 07:37
PROVIDERS: ATTEND Internal Medicine Gastroenterology
DX: K21.9 Gastro-esophageal reflux disease without esophagitis (principal); I48.91 Unspecified atrial fibrillation; I73.9 Peripheral vascular disease, unspecified; I10 Essential (primary) hypertension; E78.5 Hyperlipidemia, unspecified; E11.9 Type 2 diabetes mellitus without complications; G47.33 Obstructive sleep apnea (adult) (pediatric); Z88.5 Allergy status to narcotic agent; Z79.02 Long term (current) use of antithrombotics/antiplatelets; Z79.84 Long term (current) use of oral hypoglycemic drugs; Z79.899 Other long term (current) drug therapy
CPT/HCPCS: 45378; J2003; J2704

== ENCOUNTER 2025-02-18 11:54 | Emergency (ER) | payer OTHER ==
[2025-02-18] MEDS: FLUORESCEIN STRIPS 1 MG STRIP LEFT EYE ONE (13:34)
[2025-02-18] MEDS: PROPARACAINE 0.5% OPHTH DROPS 15 ML BTL LEFT EYE STA (13:34)
--- NOTE | 2025-02-18 14:26 | ED ---
Eye Problem HPI - General Chief complaint: Eye Problems Stated complaint: Broke blood vessel in left eye Time Seen by Provider: 02/18/25 14:22 Source: patient, RN notes reviewed Mode of arrival: ambulatory Limitations: no limitations - History of Present Illness Initial comments: 75-year-old male presenting for left eye redness x 3 days. States he was straining to have a bowel movement on Monday and shortly afterwards noticed redness to his left eye. He is on Plavix. Denies headache, vision changes, pain. Denies injury or trauma to the eye. - Related Data Home Medications Medication Instructions Recorded Confirmed Cholecalciferol [Vitamin D3 (25 1 tab PO BID 08/31/16 11/05/24 Mcg = 1000 Iu)] Docusate [Colace] 100 mg PO DAILY 08/31/16 11/06/24 Gabapentin [Neurontin] 600 mg PO TID 08/31/16 11/06/24 Multivitamins, Thera [Multivitamin 1 tab PO DAILY 08/31/16 11/05/24 (formulary)] glipiZIDE [Glucotrol] 10 mg PO BID 08/31/16 11/06/24 metFORMIN HCL [Glucophage] 1,000 mg PO BID 08/31/16 11/06/24 Atorvastatin [Lipitor] 80 mg PO HS 12/19/20 11/06/24 Flecainide Acetate [Tambocor] 100 mg PO BID 12/19/20 11/06/24 Losartan Potassium [Cozaar] 25 mg PO DAILY 12/19/20 11/06/24 Prazosin HCl 2 mg PO HS 12/19/20 11/06/24 Sertraline [Zoloft] 100 mg PO DAILY 12/19/20 11/06/24 buPROPion HCL [Wellbutrin SR] 150 mg PO DAILY 12/19/20 11/06/24 traZODone HCL 200 mg PO HS 11/05/24 11/06/24 Previous Rx's Medication Instructions Recorded Pantoprazole Sodium [Protonix] 40 mg PO DAILY #30 tablet. 12/22/20 Rivaroxaban [Xarelto] 20 mg PO HS #0 12/22/20 Allergies Allergy/AdvReac Type Severity Reaction Status Date / Time codeine AdvReac URINARY Verified 11/06/24 08:00 RETENTION Review of Systems ROS Statement: Those systems with pertinent positive or pertinent negative responses have been documented in the HPI. ROS Other: All systems not noted in ROS Statement are negative. Past Medical History Past Medical History: Atrial Fibrillation, Cancer, Diabetes Mellitus, GERD/Reflux, Hyperlipidemia, Hypertension, Sleep Apnea/CPAP/BIPAP Additional Past Medical History / Comment(s): PERIPHERAL NEUROPATHY LEGS. 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 uses CPAP, hx. prostated cancer, has been having blood in stool History of Any Multi-Drug Resistant Organisms: None Reported Past Surgical History: Prostate Surgery Additional Past Surgical History / Comment(s): ORIF RIGHT LEG & LEFT ARM, prostatectomy Past Anesthesia/Blood Transfusion Reactions: Previous Problems w/ Anesthesia Additional Past Anesthesia/Blood Transfusion Reaction / Comment(s): STATES AFTER HIS PROSTATE SURGERY, HE DIDN'T WAKE UP FOR 2 WEEKS (HAD SURGERY AT [facility], STATES HE NEVER GOT AN ANSWER FROM PHYSICIANS TO WHAT HAPPENED). "I don't have a problem with anesthesia but the problem is they gave me too much." Past Psychological History: No Psychological Hx Reported Smoking Status: Former smoker - Past Family History Mother Family Medical History: No Reported History General Exam Limitations: no limitations General appearance: alert, in no apparent distress Head exam: Present: atraumatic, normocephalic, normal inspection Eye exam: Present: PERRL, EOMI. Absent: normal appearance (Subconjunctival hemorrhage to medial and inferior aspect of the left eye. Average intraocular pressure left eye 16. Fluorescein stain negative for uptake), scleral icterus, conjunctival injection, periorbital swelling Pupils: Present: normal accommodation ENT exam: Present: normal exam, mucous membranes moist Neck exam: Present: normal inspection. Absent: tenderness, meningismus, lymphadenopathy Respiratory exam: Present: normal lung sounds bilaterally. Absent: respiratory distress, wheezes, rales, rhonchi, stridor Cardiovascular Exam: Present: regular rate, normal rhythm, normal heart sounds. Absent: systolic murmur, diastolic murmur, rubs, gallop, clicks Neurological exam: Present: alert, oriented X3 Psychiatric exam: Present: normal affect, normal mood Skin exam: Present: warm, dry, intact, normal color. Absent: rash Course Vital Signs 02/18/25 12:11 Temperature 97.8 F Pulse Rate 66 Respiratory 22 Rate Blood Pressure 114/71 O2 Sat by Pulse 95 Oximetry Medical Decision Making - Medical Decision Making Was pt. sent in by a medical professional or institution (KAREN Wray, STUDIO COORDINATOR, urgent care, hospital, or long-term...) When possible be specific @ -No Did you speak to anyone other than the patient for history (EMS, parent, family, police, friend...)? What history was obtained from this source @ -No Did you review nursing and triage notes (agree or disagree)? Why? @ -I reviewed and agree with nursing and triage notes Were old charts reviewed (outside hosp., previous admission, EMS record, old EKG, old radiological studies, urgent care reports/EKG's, long-term records)? Report findings @ -No old charts were reviewed Differential Diagnosis (chest pain, altered mental status, abdominal pain women, abdominal pain men, vaginal bleeding, weakness, fever, dyspnea, syncope, headache, dizziness, GI bleed, back pain, seizure, CVA, palpatations, mental health, musculoskeletal)? @ -Conjunctivitis, subconjunctival hemorrhage, glaucoma, ocular foreign body, corneal abrasion EKG interpreted by me (3pts min.). @ -None X-rays interpreted by me (1pt min.). @ -None done CT interpreted by me (1pt min.). @ -None done U/S interpreted by me (1pt. min.). @ -None done What testing was considered but not performed or refused? (CT, X-rays, U/S, labs)? Why? @ -None What meds were considered but not given or refused? Why? @ -None Did you discuss the management of the patient with other professionals (professionals i.e. KAREN Wray, STUDIO COORDINATOR, lab, RT, psych nurse, social services manager, engineer assistant, teacher, community liaison officer, behavioral health case manager)? Give summary @ -No Was smoking cessation discussed for >3mins.? @ -No Was critical care preformed (if so, how long)? @ -No Were there social determinants of health that impacted care today? How? (Homelessness, low income, unemployed, alcoholism, drug addiction, t ransportation, low edu. Level, literacy, decrease access to med. care, snf, rehab)? @ -No Was there de-escalation of care discussed even if they declined (Discuss DNR or withdrawal of care, Hospice)? DNR status @ -No What co-morbidities impacted this encounter? (DM, HTN, Smoking, COPD, CAD, Cancer, CVA, ARF, Chemo, Hep., AIDS, mental health diagnosis, sleep apnea, morbid obesity)? @ -None Was patient admitted / discharged? Hospital course, mention meds given and route, prescriptions, significant lab abnormalities, going to OR and other pertinent info. @ -Discharge. 75-year-old male on thinners presenting for redness to left eye x 3 days after straining to have a bowel movement. Visual acuity 20/40 left, 20/30 right. Fluorescein stain negative for uptake, average intraocular pressure left 16. Discussed diagnosis of left conjunctival hemorrhage. Reassured that symptoms will likely resolve spontaneously. Appropriate return precautions and follow-up care discussed. Case was discussed with my ED attending Dr. Colvin Undiagnosed new problem with uncertain prognosis? @ -No Drug Therapy requiring intensive monitoring for toxicity (Heparin, Nitro, Insulin, Cardizem)? @ -No Were any procedures done? @ -No Diagnosis/symptom? @ -Subconjunctival hemorrhage left eye Acute, or Chronic, or Acute on Chronic? @ -Acute Uncomplicated (without systemic symptoms) or Complicated (systemic symptoms)? @ -Uncomplicated Side effects of treatment? @ -No Exacerbation, Progression, or Severe Exacerbation? @ -No Poses a threat to life or bodily function? How? (Chest pain, USA, PA, pneumonia, PE, COPD, DKA, ARF, appy, cholecystitis, CVA, Diverticulitis, Homicidal, Suicidal, threat to staff... and all critical care pts) @ -No Disposition Clinical Impression: Subconjunctival hemorrhage of left eye Disposition: HOME SELF-CARE Condition: Stable Instructions (If sedation given, give patient instructions): Subconjunctival Hemorrhage (ED) Additional Instructions: Please return to the Emergency Department if symptoms worsen or any other concerns. Is patient prescribed a controlled substance at d/c from ED?: No Referrals: None,Stated [Primary Care Provider] - 1-2 days Time of Disposition: 14:26
[2025-02-18 14:50] VITALS: BP 112/86; PULSE 64; RESP 20; TEMP 97.9
== END 2025-02-18 16:13 | disposition home or self-care (01) ==
LOC: EC 11:54
DX: H11.32 Conjunctival hemorrhage, left eye (principal); Z79.02 Long term (current) use of antithrombotics/antiplatelets; Z87.891 Personal history of nicotine dependence; Z88.5 Allergy status to narcotic agent
CPT/HCPCS: 99283